=== PATIENT | female | born 1955 | race Asian ===

== ENCOUNTER 2016-08-24 07:59 | Emergency (ER) | payer OTHER ==
[2016-08-24 08:07] VITALS: TEMP 98; BMI 45.7
--- NOTE | 2016-08-24 08:40 | PDOC ---
History of Present Illness - General History Source: Patient Exam Limitations: No Limitations - History of Present Illness Initial Comments: 08/24/16 09:31 The patient is a 61 year old female with a past medical history of HTN, HLD, AFIB, GERD, and asthma who presents to the Emergency Department for further evaluation of high blood pressure, dizziness, and orthopnea for 2 days. The patient states that she measured her blood pressure at home and found it to be 173/111. The patient reports at baseline her blood pressure is normally 120/80. The patient reports that she has not been able to sleep secondary to shortness of breath when lying down. The patient reports that she stopped taking Hydralazine about one week ago. The patient reports that her last echocardiogram was in 2016. The patient denies nausea, vomiting, sweats, or chills. <Josr Hernández - Last Filed: 08/24/16 12:08> <Hunter Robert - Last Filed: 08/24/16 15:59> - General Chief Complaint: Shortness of Breath Stated Complaint: SOB/BP PROBLEM Time Seen by Provider: 08/24/16 08:26 Past History <Josr Hernández - Last Filed: 08/24/16 12:08> - Past Medical History Anemia: Yes Asthma: Yes Cardiac Disorders: Yes (afib on coumadin) GI Disorders: Yes (GERD) Disorders: Yes (UTI) HTN: Yes Hypercholesterolemia: Yes Suicide Attempt (Hx): No - Surgical History Appendectomy: Yes Orthopedic Surgery: Yes (R rotator cuff (04/19)) - Immunization History Immunization Up to Date: Yes - Psycho/Social/Smoking Cessation Hx Anxiety: No Suicidal Ideation: No Smoking Status: Yes Smoking History: Never smoked Have you smoked in the past 12 months: No Number of Cigarettes Smoked Daily: 0 If you are a former smoker, when did you quit?: 1989 Hx Alcohol Use: No Drug/Substance Use Hx: No Substance Use Type: None Hx Substance Use Treatment: No <Hunter Robert - Last Filed: 08/24/16 15:59> - Past Medical History Allergies/Adverse Reactions: Allergies Allergy/AdvReac Type Severity Reaction Status Date / Time aspirin Allergy Rash Verified 08/24/16 08:07 shellfish derived Allergy Verified 08/24/16 08:07 Home Medications: Ambulatory Orders Carvedilol [Coreg] 6.25 mg PO BID 01/30/12 Atorvastatin Ca [Lipitor] 10 mg PO DAILY #0 tablet 01/31/12 Apixaban [Eliquis -] 5 mg PO BID tablet 12/26/15 Furosemide [Lasix] 20 mg PO MOWEFR 08/24/16 Review of Systems - Review of Systems Able to Perform ROS?: Yes Comments:: 08/24/16 09:31 CONSTITUTIONAL: No reported: Fever, Chills, Diaphoresis, Generalized Weakness, Malaise, Loss of Appetite HEENT: No reported: Rhinorrhea, Nasal Congestion, Throat Pain, Throat Swelling, Difficulty Swallowing, Mouth Swelling, Ear Pain, Eye Pain, Visual Changes CARDIOVASCULAR: No reported: Chest Pain, Syncope, Palpitations, Irregular Heart Rate, Lightheadedness, Peripheral Edema RESPIRATORY: Reported: SOB, Orthopnea No reported: Cough, Wheezing, Stridor, Hemoptysis GASTROINTESTINAL: No reported: Abdominal pain, Abdominal Distension, Nausea, Vomiting, Diarrhea, Constipation, Melena, Hematochezia GENITOURINARY: No reported: Dysuria, Frequency, Urgency, Hesitancy, Flank Pain, Genital Pain MUSCULOSKELETAL: No reported: Myalgia, Arthralgia, Joint Swelling, Back pain, Neck Pain SKIN: No reported: Rash, Itching, Pallor HEMATOLOGIC/IMMUNOLOGIC: No reported: Easy Bleeding, Easy Bruising, Lymphadenopathy, Frequent infections ENDOCRINE: No reported: Unexplained Weight Gain, Unexplained Weight Loss, Heat Intolerance , Cold Intolerance NEUROLOGIC: Reported: Dizziness No reported: Headache, Focal Weakness, Paresthesias, Vertigo, Unsteady Gait, Seizure, Mental Status Changes, Incontinence PSYCHIATRIC: No reported: Anxiety, Depression <Josr Hernández - Last Filed: 08/24/16 12:08> *Physical Exam - Vital Signs Last Vital Signs Temp Pulse Resp BP Pulse Ox 98.0 F 87 28 H 173/111 97 08/24/16 08:01 08/24/16 08:19 08/24/16 08:01 08/24/16 08:01 08/24/16 08:19 - Physical Exam Comments: 08/24/16 09:38 GENERAL: The patient is awake, alert, and fully oriented, Nontoxic - in no acute distress. HEAD: Normocephalic, atraumatic. EYES: extraocular movements intact, sclera anicteric, conjunctiva clear. ENT: Normal voice, Moist mucous membranes. NECK: Normal range of motion, supple LUNGS: Breath sounds equal, clear to auscultation bilaterally. No wheezes, no rhonchi, no rales. HEART: irregularly irregular, normal S1 and S2 without murmur, rub or gallop. ABDOMEN: Soft, nontender, normoactive bowel sounds. No guarding, no rebound. . No CVA tenderness EXTREMITIES: +2 pitting edema bilaterally, Normal range of motion No clubbing or cyanosis. No cords, erythema, or tenderness. NEUROLOGICAL: No facial assymetry, Normal speech, moving all 4 extremities spontaneously and symmetrically PSYCH: Normal mood, normal affect. SKIN: Warm, Dry, normal turgor <Josr Hernández - Last Filed: 08/24/16 12:08> - Vital Signs Last Vital Signs Temp Pulse Resp BP Pulse Ox 98.0 F 87 28 H 173/111 97 08/24/16 08:01 08/24/16 08:19 08/24/16 08:01 08/24/16 08:01 08/24/16 08:19 <Hunter Robert - Last Filed: 08/24/16 15:59> Heart Score/ECG Review - ECG Impressions Comment:: 08/24/16 08:53 Twelve-lead EKG was performed and reviewed by me. Irregularly irregular Rate of 74 Q wave in lead 3 - present on EKG dated 04/30/[address]-T wave suggestive of acute ischemia Impression: Atrial fibrillation <Hunter Robert - Last Filed: 08/24/16 15:59> ED Treatment Course - LABORATORY CBC & Chemistry Diagram: 08/24/16 09:01 08/24/16 09:01 - ADDITIONAL ORDERS Additional order review: 08/24/16 09:01 RBC 4.24 MCV 94.3 MCHC 33.2 RDW 13.3 MPV 8.2 D Neutrophils % 70.6 Lymphocytes % 21.0 Monocytes % 5.2 Eosinophils % 2.4 Basophils % 0.8 - Medications Given in the ED: ED Medications Discontinued Medications Generic Name Dose Route Start Last Admin Trade Name Freq PRN Reason Stop Dose Admin Acetaminophen 650 mg 08/24/16 09:01 08/24/16 09:14 Tylenol - PO 08/24/16 09:02 Not Given ONCE ONE <Josr Hernández - Last Filed: 08/24/16 12:08> - LABORATORY CBC & Chemistry Diagram: 08/24/16 09:01 08/24/16 09:01 <Hunter Robert - Last Filed: 08/24/16 15:59> Medical Decision Making - Medical Decision Making 08/24/16 11:[address] Wang 08/24/16 11:[address] Wang 08/24/16 11:[address] Wang 08/24/16 12:00 Dr. Wang call into ER. Case discussed with Dr. Robert. <Josr Hernández - Last Filed: 08/24/16 12:08> - Medical Decision Making 08/24/16 12:01 61y F hx of afib on eliquis, htn, presents with orthopnea w/o associated chest pain/pressure, n/v, exertionalsob - on exam pt has mild edema in the LE, lungs clear. lbas reviewed noted for mild elevation of bnp cxr w/o signs of significant congestion but with mild interstitial changes vitals are normal case dw dr. Muñoz - pt last had echo in 01/2016. recommends lasix 40mg, repeat trop in 2-3 hrs if pt feels improved recommend increased lasix for a few days f/u with jelani with wed 08/24/16 12:02 08/24/16 12:04 08/24/16 12:18 08/24/16 12:18 pt endorses eating a meal of In[employer] ruperto the day prior to onset of sypmtoms - suspect thi smay have led to increasd fluid retention. 08/24/16 15:54 pt feeling improved able to recline with out feeling sob will d/c the pt with increased dosage of lasix an dfu with dr. muñoz on sat return precautions were discussed I discussed the physical exam findings, ancillary test results and final diagnoses with the patient. I answered all of the patient's questions. The patient was satisfied with the care received and felt comfortable with the discharge plan and treatment plan. The patient will call their primary care physician within 24 hours to arrange follow-up and will return to the Emergency Department with any new, persistent or worsening symptoms. <Hunter Robert - Last Filed: 08/24/16 15:59> *DC/Admit/Observation/Transfer - Attestations Scribe Attestion: 08/24/16 09:32 Documentation prepared by Josr Hernández, acting as medical administrator for Hunter Robert MD. <Josr Hernández - Last Filed: 08/24/16 12:08> - Discharge Dispostion Admit: No <Hunter Robert - Last Filed: 08/24/16 15:59> Diagnosis at time of Disposition: Congestive heart failure Qualifiers: Congestive heart failure type: unspecified congestive heart failure type Congestive heart failure chronicity: acute Qualified Code(s): I50.9 - Heart failure, unspecified - Discharge Dispostion Disposition: HOME Condition at time of disposition: Improved - Referrals Referrals: Argelia Morrissey [Primary Care Provider] - Josue Muñoz MD [Staff Physician] - - Patient Instructions Printed Discharge Instructions: DI for Heart Failure Additional Instructions: Return to the emergency department immediately with ANY new, persistent or worsening symptoms including any chest pain, shortness of breath or any other concerns. Please increase your lasix to 20mg twice daily for 3 days, then return to your old dosage. You MUST call and follow up with your flexo press operator on Saturday for further evaluation of your symptoms. Results were discussed with you. Please make sure your doctor reviews the results of your emergency evaluation. Print Language: BELARUSIAN
[2016-08-24] MEDS ORDERED: ACETAMINOPHEN 325 MG TABLET (FP) PO ONE (09:01)
[2016-08-24] MEDS ORDERED: ACETAMINOPHEN 325 MG TABLET (FP) ONE (09:12)
[2016-08-24 09:16] LABS: BASOPHIL 0.8 % (0-2.0); EOSINOPHIL 2.4 % (0-4.5); MCH 31.3 pg (25.7-33.7); MCHC 33.2 g/dl (32.0-36.0); MEAN CELL VOLUME 94.3 fl (80-96); MEAN PLT VOLUME 8.2 fl (7.5-11.1); NEUTROPHILS 70.6 % (42.8-82.8); PLATELET COUNT 173 K/MM3 (134-434); RDW 13.3 % (11.6-15.6); WHITE BLOOD COUNT 5.4 K/mm3 (4.0-10.0)
[2016-08-24 09:58] LABS: ALBUMIN 3.3 g/dl (3.4-5.0); ANION GAP 6 (8-16); BILIRUBIN,TOTAL 0.6 mg/dL (0.2-1.0); CALCIUM 9.1 mg/dL (8.5-10.1); CO2 27 mmol/L (21-32); GLUCOSE,RANDOM 106 mg/dL (74-106); SGOT/AST 20 U/L (15-37); SGPT/ALT 26 U/L (12-78); TOT PROT 7.6 g/dl (6.4-8.2)
[2016-08-24 10:00] LABS: ALK PHOS 92 U/L (45-117); TROPONIN I < 0.02 ng/ml (0.00-0.05)
[2016-08-24] MEDS ORDERED: FUROSEMIDE 40 MG/4 ML INJECTABLE VIAL IVPUSH ONE (12:00)
[2016-08-24] MEDS ORDERED: FUROSEMIDE 40 MG/4 ML INJECTABLE VIAL ONE (12:09)
[2016-08-24 14:47] LABS: TROPONIN I < 0.02 ng/ml (0.00-0.05)
[2016-08-24 17:09] VITALS: BP 146/88; PULSE 64
--- NOTE | 2016-08-25 10:05 | EKG ---
Test Reason : Blood Pressure : / mmHG Vent. Rate : 074 BPM Atrial Rate : 340 BPM P-R Int : 000 ms QRS Dur : 092 ms QT Int : 404 ms P-R-T Axes : 000 032 041 degrees QTc Int : 448 ms ATRIAL FIBRILLATION CANNOT RULE OUT INFERIOR INFARCT (CITED ON OR BEFORE 30-APR-2016) ABNORMAL ECG WHEN COMPARED WITH ECG OF 30-APR-2016 21:51, NO SIGNIFICANT CHANGE WAS FOUND Confirmed by JACQUELIN PEOPLES MD ([id number]) on 08/25/2016 10:05:34 AM Referred By: Confirmed By:JACQUELIN PEOPLES MD
== END 2016-08-24 17:09 | disposition home or self-care (01) ==
LOC: JER 07:59
PROC: 3E033GC Introduction of Other Therapeutic Substance into Peripheral Vein, Percutaneous Approach (ICD-10-PCS; principal; 2016-08-24)
DX: I50.9 Heart failure, unspecified (principal); I48.91 Unspecified atrial fibrillation; Z79.01 Long term (current) use of anticoagulants; I10 Essential (primary) hypertension; E78.00 Pure hypercholesterolemia, unspecified; K21.9 Gastro-esophageal reflux disease without esophagitis
CPT/HCPCS: 36415; 71010-TC; 80053; 82550; 83735; 83880; 84484; 85025; 93005; 93010; 93306-TC; 96374; 99285-25

== ENCOUNTER 2016-09-08 14:31 | Observation (INO) | payer OTHER ==
[2016-09-08 14:40] VITALS: BMI 48.2
--- NOTE | 2016-09-08 17:30 | PDOC ---
History of Present Illness - General History Source: Patient Exam Limitations: No Limitations - History of Present Illness Initial Comments: 09/08/16 18:03 The patient is a 61 year old female with a significant past medical history of HTN, AFIB (on eliquis), acid reflux, GERD, who presents to the ED complaining of non-radiating mid-chest achiness for the past two days. She notes some associated SOB and nausea. She describes the chest achiness as 4/10 in severity. She states she felt like fainting on multiple occasions and had difficulty sleeping. Her took her blood pressure this morning at 10 AM, and reported it being high at 167/105. She denies cough, fever, chills, diarrhea vomiting diaphoresis. Pt states she was here two weeks ago for similar symptoms. She was given a chest x-ray, which was unremarkable. Pt states she is scheduled for a stress test here next . Blow Molding Machine Operator: Dr. Muñoz PCP: Dr. Morrissey <Leopoldo Garay - Last Filed: 09/08/16 18:03> - General History Source: Patient Exam Limitations: No Limitations <Candi Gustafson - Last Filed: 09/08/16 19:52> - General Chief Complaint: Weakness Stated Complaint: WEAKNESS Time Seen by Provider: 09/08/16 16:48 Past History <Leopoldo Garay - Last Filed: 09/08/16 18:03> - Past Medical History Asthma: Yes Cardiac Disorders: Yes (A FIB) HTN: Yes - Surgical History Appendectomy: Yes - Psycho/Social/Smoking Cessation Hx Anxiety: No Suicidal Ideation: No Smoking History: Never smoked Hx Alcohol Use: No Drug/Substance Use Hx: No Substance Use Type: None <Candi Gustafson - Last Filed: 09/08/16 19:52> - Past Medical History Allergies/Adverse Reactions: Allergies Allergy/AdvReac Type Severity Reaction Status Date / Time aspirin Allergy Itching Verified 09/08/16 14:41 SEAFOOD Allergy Itching Uncoded 09/08/16 14:41 Home Medications: Ambulatory Orders Unobtainable [Unobtainable] 09/08/16 Review of Systems - Review of Systems Able to Perform ROS?: Yes Comments:: 09/08/16 18:04 GENERAL/CONSTITUTIONAL: No: fever, chills, weakness, loss of appetite. HEAD, EYES, EARS, NOSE AND THROAT: No: change in vision, ear pain, discharge, sore throat, throat swelling. CARDIOVASCULAR: + chest pain. No: lightheadedness, palpitations, syncope RESPIRATORY: + SOB. No: cough, wheezing, hemoptysis, stridor. GASTROINTESTINAL: + nausea No: vomiting, abdominal cramping, diarrhea, rectal bleeding, constipation. GENITOURINARY: No: dysuria, hematuria, frequency, urgency, flank pain. MUSCULOSKELET AL: No: back pain, neck pain, joint pain, muscle swelling or pain SKIN AND BREASTS: No: lesions, pallor, rash or easy bruising. NEUROLOGIC: No: headache, vertigo, paresthesias, weakness ENDOCRINE: No: unexplained weight gain or loss HEMATOLOGIC/LYMPHATIC: No: anemia, easy bleeding, swelling nodes <Leopoldo Garay - Last Filed: 09/08/16 18:03> *Physical Exam - Vital Signs Last Vital Signs Temp Pulse Resp BP Pulse Ox 98.2 F 72 20 153/78 97 09/08/16 14:36 09/08/16 14:36 09/08/16 14:36 09/08/16 14:36 09/08/16 14:36 - Physical Exam Comments: 09/08/16 18:04 GENERAL: The patient is in no acute distress. HEAD: Normal with no signs of trauma. EYES: PERRLA, EOMI, sclera anicteric, conjunctiva clear. ENT: Ears normal, nares patent, oropharynx clear without exudates. Moist mucous membranes. NECK: Normal range of motion, supple without lymphadenopathy, JVD, or masses. LUNGS: Basilar crackles. Breath sounds equal, clear to auscultation bilaterally. No wheezes. HEART: Ireggulary ireggular, normal S1 and S2 without murmur, rub or gallop. ABDOMEN: Soft, nontender, normoactive bowel sounds. No guarding, no rebound. EXTREMITIES: 3+ lower pitting edema. Normal range of motion. No clubbing or cyanosis. No erythema, or tenderness. NEUROLOGICAL: Cranial nerves II through XII grossly intact. Normal speech. No focal neurological deficits. MUSCULOSKELETAL: Back non-tender to palpation, no CVA tenderness SKIN: Warm, Dry, normal turgor, no rashes or lesions noted. <Leopoldo Garay - Last Filed: 09/08/16 18:03> - Vital Signs Last Vital Signs Temp Pulse Resp BP Pulse Ox 98.2 F 72 20 153/78 97 09/08/16 14:36 09/08/16 14:36 09/08/16 14:36 09/08/16 14:36 09/08/16 14:36 <Candi Gustafson - Last Filed: 09/08/16 19:52> Heart Score/ECG Review - History History: Moderately suspicious - Electrocardiogram EKG: Non specific repolarization disturbance - Age Age: 45-65 - Risk Factors Risk Factors Heart Score: Yes Hx Hypercholesterolemia, Yes Hx Hypertension Based on the list above the patient has:: 1-2 risk factors <Candi Gustafson - Last Filed: 09/08/16 19:52> ED Treatment Course - LABORATORY CBC & Chemistry Diagram: 09/08/16 17:30 09/08/16 17:30 - ADDITIONAL ORDERS Additional order review: 09/08/16 17:30 RBC 4.32 MCV 93.7 MCHC 33.4 RDW 13.2 MPV 8.5 Neutrophils % 62.0 Lymphocytes % 25.9 Monocytes % 8.8 Eosinophils % 2.5 Basophils % 0.8 <Leopoldo Garay - Last Filed: 09/08/16 18:03> - LABORATORY CBC & Chemistry Diagram: 09/08/16 17:30 09/08/16 17:30 <Candi Gustafson - Last Filed: 09/08/16 19:52> Medical Decision Making - Medical Decision Making 09/08/16 17:29 A portion of this note was documented by scribe services under my direction. I have reviewed the details of the note, within reason, and agree with the documentation with the following case summary and management plan written by me. Nursing documentation reviewed and incorporated into medical decision making 61 yo F h/o obesity, HTN, CHF presenting to the er with shortness of breath and fatigue pt has felt chest pain which she describes as an ache Has exertional dyspnea No fevers or chills Differential includes cardiac ischemia, pe (less likely given pt is on Eliquis) , pneumonia, pneumothorax, pleural effusion, CHF Laboratory Tests 09/08/16 09/08/16 09/08/16 17:30 17:30 18:00 WBC 6.0 Hgb 13.5 Hct 40.5 Plt Count 195 Neutrophils % 62.0 Lymphocytes % 25.9 Anion Gap 10 BUN 20 H Creatinine 1.0 Creatine Kinase 81 Troponin I < 0.02 B-Natriuretic Peptide 2947.34 H 09/08/16 19:[address] Mancini Will admit to Hospitalist service Will place on tele 09/08/16 19:35 <Candi Gustafson - Last Filed: 09/08/16 19:52> *DC/Admit/Observation/Transfer - Attestations Scribe Attestion: 09/08/16 18:06 Documentation prepared by Leopoldo Garay, acting as medical facilities section director for Candi Gustafson MD/. <Leopoldo Garay - Last Filed: 09/08/16 18:03> - Discharge Dispostion Admit: Yes <Candi Gustafson - Last Filed: 09/08/16 19:52> Diagnosis at time of Disposition: Chest pain Qualifiers: Chest pain type: unspecified Qualified Code(s): R07.9 - Chest pain, unspecified Congestive heart failure Qualifiers: Congestive heart failure type: unspecified congestive heart failure type Congestive heart failure chronicity: acute on chronic Qualified Code(s): I50.9 - Heart failure, unspecified - Discharge Dispostion Condition at time of disposition: Stable - Referrals Referrals: Argelia Morrissey [Primary Care Provider] -
[2016-09-08 17:41] LABS: BASOPHIL 0.8 % (0-2.0); EOSINOPHIL 2.5 % (0-4.5); MCH 31.3 pg (25.7-33.7); MCHC 33.4 g/dl (32.0-36.0); MEAN CELL VOLUME 93.7 fl (80-96); MEAN PLT VOLUME 8.5 fl (7.5-11.1); PLATELET COUNT 195 K/MM3 (134-434); RDW 13.2 % (11.6-15.6)
[2016-09-08 17:55] LABS: INR 1.05 (0.82-1.09); PROTHROMBIN TIME (PATIENT) 11.6 SEC (9.98-11.88)
[2016-09-08 18:20] LABS: ALBUMIN 3.1 g/dl (3.4-5.0); ANION GAP 10 (8-16); BILIRUBIN,TOTAL 0.8 mg/dL (0.2-1.0); CALCIUM 9.5 mg/dL (8.5-10.1); CO2 28 mmol/L (21-32); COCKROFT - GAULT 105.1365; GLUCOSE,RANDOM 90 mg/dL (74-106); SGPT/ALT 29 U/L (12-78); TOT PROT 7.5 g/dl (6.4-8.2)
[2016-09-08 18:23] LABS: ALK PHOS 97 U/L (45-117); SGOT/AST 25 U/L (15-37); TROPONIN I < 0.02 ng/ml (0.00-0.05)
[2016-09-08 18:56] LABS: URINE APPEARANCE CLEAR; URINE BILIRUBIN NEGATIVE (NEGATIVE); URINE BLOOD NEGATIVE (NEGATIVE); URINE COLOR STRAW; URINE GLUCOSE (UA) NEGATIVE (NEGATIVE); URINE KETONE NEGATIVE (NEGATIVE); URINE NITRITE NEGATIVE (NEGATIVE); URINE PROTEIN NEGATIVE (NEGATIVE); URINE UROBILINOGEN NEGATIVE E.U./dl (0.2-1.0)
[2016-09-08 18:57] LABS: URINE LEUK ESTERASE TRACE (NEGATIVE)
[2016-09-08 18:58] LABS: URINE HYALINE CAST 3 /lpf; URINE RBC 1 /hpf (0-3); URINE WBC 7 /hpf (3-5)
[2016-09-08] MEDS ORDERED: FUROSEMIDE 40 MG/4 ML INJECTABLE VIAL IVPB ONE (20:34)
[2016-09-08] MEDS ORDERED: ONDANSETRON 4 MG/2 ML VIAL IVPB PRN (20:37)
[2016-09-08] MEDS ORDERED: ACETAMINOPHEN 325 MG TABLET (FP) PO PRN (20:37)
--- NOTE | 2016-09-08 20:51 | HP ---
Admitting History and Physical - Admission Chief Complaint: sob, cp History of Present Illness: 61 yo obese f w hx of afib on eliquis, htn, osas, asthma, GERD, oa presents to the ER for evaluation of sob, and cp. she reports seeing coke oven mason ( Wanda) last week and had increase in Lasix to 20mg BID. She reports taking Lasix sometimes once a day because of concern of her kidneys. She was also scheduled for a stress test for next . She reports having echo done 2016, and a stress test in 2014 which was normal. She reports that she was in ER at [facility] 2 weeks ago and was given IV Lasix for SOB symptoms. She reports yesterday she felt an achy mid sternum pain which lasted 1/2 of the day. She reports it was 3-4/10. She denies associated numbness, jaw claudication, heart palps, nausea, vomiting. She also reports getting sob suddenly at night which has disturbed her sleep. She denies RAMSAY. She reports having Sob for several months and had a sleep study test done showing mild sleep apnea 6mon ago. She also reports feeling a few presyncopal episodes lasting a few seconds. She reports that when she checked her B/P it was 167/105. PMH/PSH: Obesity, htn, afib, osas, gerd, asthma, oa, appy, hemorrhoids sx, uterine polyps removal, R rotator cuff sx Social- Denies tobacco, alcohol, rec drugs. Works as [employer]. Family History: No family history of kidney disease; sister with DM, mother and father with HTN and CVA (both ) PCP- Argelia Morrissey- Wanda Rest of ros neg except for HPI Physical Gen- obese, in nad Hent- at/nc, timothy, neck supple, trachea mid-line, no pharyngeal erythema Resp- NO cough, no cyanosis, lungs ctab, no rales, no ronchi Cards- S1S2 heard, irreg rhythm, reg rate, no JVD, +1 pitting edema, extremity pulses palpable Neuro- cn2-12 grossly intact, speech clear, no facial droop Musk- Muscle strength 5/5 BUE/BLE, normal arom BUE/BLE Psych- cooperative, no agitation Skin- intact, dry, no erythema Gi- obese, no rigidity, no rebound, no guarding, no distention Prob list SOB CP Afib HTN asthma osas Presyncope GERD Imaging: CXR appears clear by my eye EKG- afib, non specific ST and T wave abnormality, q in III, Echo 08/2016- LV function grossly normal, no sig valve disease A/P- 61 yo obese f w hx of afib on eliquis, htn, osas, asthma, oa presents to the ER for evaluation of sob, and cp placed in obs for further evaluation of their emergent condition. 1. SOB, ?CHF, ?ACS ?infection ?asthma CXR appears clear by my eye 1st trop negative BNP 2947, but higher on prior visit on 08/2016 BLE +1 Lasix 40mg IV Daily weights Supp O2, PRN nebs Low salt Cards consult Cardiac monitoring 2. Atypical CP, ?ACS ?MUSK ECG shows afib non specific t wave abnormality Cycle Trops Cards consult Possible stress test 3. Afib Continue AC, BB 4. HTN Continue Losartan, Coreg 5. OSAS Not on Bipap 6. Presyncope FU Trops Cardiac tele 7. BLE edema likely related to CHF v other FU duplex BLE 8. GERD DVT prophy systemic AC, OOB Dispo- obs for ACS r/o History Source: Patient, Family Member Limitations to Obtaining History: No Limitations - Smoking History Smoking history: Never smoked - Alcohol/Substance Use Hx Alcohol Use: No Home Medications - Allergies Allergies/Adverse Reactions: Allergies Allergy/AdvReac Type Severity Reaction Status Date / Time aspirin Allergy Itching Verified 09/08/16 14:41 SEAFOOD Allergy Itching Uncoded 09/08/16 14:41 - Home Medications Home Medications: Ambulatory Orders Apixaban [Eliquis -] 5 mg PO BID 09/08/16 Atorvastatin Ca [Lipitor] 10 mg PO HS 09/08/16 Carvedilol [Coreg -] 6.25 mg PO BID 09/08/16 Furosemide [Lasix -] 20 mg PO BID 09/08/16 Losartan Potassium 100 mg PO DAILY 09/08/16 Physical Examination Vital Signs: Vital Signs Temperature 98.2 F 09/08/16 14:36 Pulse Rate 73 09/08/16 20:14 Respiratory Rate 19 09/08/16 20:14 Blood Pressure 135/91 09/08/16 20:14 O2 Sat by Pulse Oximetry (%) 99 09/08/16 20:14 Labs: CBC, BMP 09/08/16 17:30 09/08/16 17:30 Visit type - Emergency Visit Emergency Visit: Yes ED Registration Date: 09/08/16 Care time: The patient presented to the Emergency Department on the above date and was hospitalized for further evaluation of their emergent condition. - New Patient This patient is new to me today: Yes Date on this admission: 09/09/16 - Critical Care Critical Care patient: No
[2016-09-08] MEDS ORDERED: ALBUTEROL SO4 2.5/IPRATROPIUM 0.5 INH SOL 3 ML VIAL.NEB. NEB PRN (21:05)
[2016-09-09 07:11] LABS: ALBUMIN 3.5 g/dl (3.4-5.0); BILIRUBIN,TOTAL 0.7 mg/dL (0.2-1.0); CALCIUM 9.3 mg/dL (8.5-10.1); COCKROFT - GAULT 87.618; CREATININE 1.2 mg/dL (0.55-1.02); TOT PROT 7.9 g/dl (6.4-8.2)
[2016-09-09 07:14] LABS: TROPONIN I < 0.02 ng/ml (0.00-0.05)
[2016-09-09 07:19] LABS: BASOPHIL 0.6 % (0-2.0); EOSINOPHIL 2.5 % (0-4.5); MCH 31.6 pg (25.7-33.7); MCHC 33.5 g/dl (32.0-36.0); MEAN CELL VOLUME 94.4 fl (80-96); MEAN PLT VOLUME 8.7 fl (7.5-11.1); NEUTROPHILS 63.1 % (42.8-82.8); PLATELET COUNT 203 K/MM3 (134-434); RDW 13.3 % (11.6-15.6); WHITE BLOOD COUNT 5.9 K/mm3 (4.0-10.0)
[2016-09-09] MEDS ORDERED: POTASSIUM CHLORIDE ORAL LIQUID 20 MEQ/15 ML PO ONE (09:15)
[2016-09-09] MEDS ORDERED: CARVEDILOL 3.125 MG TABLET (FP) ONE (10:05)
[2016-09-09] MEDS ORDERED: LOSARTAN POTASSIUM 25 MG TABLET ONE (10:06)
[2016-09-09] MEDS ORDERED: POTASSIUM CHLORIDE ORAL LIQUID 20 MEQ/15 ML ONE (10:06)
[2016-09-09] MEDS ORDERED: ACETAMINOPHEN 325 MG TABLET (FP) ONE (10:56)
[2016-09-09] MEDS: CARVEDILOL 6.25 MG TABLET (FP) PO SCH ×2 (11:00→21:06)
[2016-09-09] MEDS: LOSARTAN POTASSIUM 50 MG TABLET (FP) PO SCH (11:00)
[2016-09-09] MEDS: APIXABAN 5 MG TABLET PO SCH ×2 (11:00→21:06)
--- NOTE | 2016-09-09 11:23 | PN ---
Physical Exam: SUBJECTIVE: Patient seen and examined in ER while waiting for a telemetry bed for observation. Pt is AAOx3 She denies SOB and CP OBJECTIVE: Vital Signs Period Temp Pulse Resp BP Sys/Weiss Pulse Ox Last 24 Hr 98.0 F-98.5 F 67-73 18-20 127-145/63-91 96-99 GENERAL: The patient is awake, alert, and fully oriented, in no acute distress. HEAD: Normal with no signs of trauma. NECK: Trachea midline, full range of motion, supple. LUNGS: Breath sounds equal, clear to auscultation bilaterally, no wheezes, no crackles, no accessory muscle use. HEART: irregular rate (chronic AF) and rhythm, S1, S2 without murmur ABDOMEN: Soft, nontender, nondistended, normoactive bowel sounds, no guarding, no rebound, no hepatosplenomegaly, no masses. EXTREMITIES: 2+ pulses, warm, well-perfused, +1 LE trace edema. NEUROLOGICAL: Normal speech, gait not observed. PSYCH: Normal mood, normal affect. SKIN: Warm, dry, normal turgor, no rashes or lesions noted Laboratory Results - last 24 hr 09/09/16 09/09/16 09/09/16 06:30 06:30 06:30 WBC 5.9 RBC 4.54 Hgb 14.4 Hct 42.9 MCV 94.4 MCHC 33.5 RDW 13.3 Plt Count 203 MPV 8.7 Neutrophils % 63.1 Lymphocytes % 27.3 Monocytes % 6.5 Eosinophils % 2.5 Basophils % 0.6 Sodium 141 Potassium 3.3 L Chloride 103 Carbon Dioxide 29 Anion Gap 9 BUN 22 H Creatinine 1.2 H Creat Clearance w eGFR 45.37 Random Glucose 111 H D Calcium 9.3 Total Bilirubin 0.7 AST 23 ALT 30 Alkaline Phosphatase 96 Creatine Kinase 55 Troponin I < 0.02 Total Protein 7.9 Albumin 3.5 Active Medications Generic Name Dose Route Start Last Admin Trade Name Freq PRN Reason Stop Dose Admin Acetaminophen 650 mg 09/08/16 20:37 Tylenol - PO Q4H PRN FEVER OR PAIN Albuterol/Ipratropium 1 amp 09/08/16 21:05 Duoneb - NEB Q6H PRN SHORTNESS OF BREATH Apixaban 5 mg 09/09/16 10:00 Eliquis - PO BID MEAGAN Atorvastatin Calcium 10 mg 09/09/16 22:00 Lipitor - PO HS MEAGAN Carvedilol 6.25 mg 09/09/16 10:00 Coreg - PO BID MEAGAN Losartan Potassium 100 mg 09/09/16 10:00 Cozaar - PO DAILY MEAGAN Ondansetron HCl 4 mg 09/08/16 20:37 Zofran Injection IVPB Q4H PRN NAUSEA AND/OR VOMITING ASSESSMENT/PLAN: A/P- 61 yo obese f w hx of afib on eliquis, htn, osas, asthma, oa presents to the ER for evaluation of sob, and cp placed in obs/tele for further evaluation of their emergent condition. 1. SOB but currently without distress -CXR considered officially clear -1 and 2 sets of trop negative, next scheduled at 14:30 today -BLE trace edema, no pitting -Cards consult placed last shift -Cardiac monitoring remains in AF 2. Atypical CP but currently without pain -Cycle Trops pending 3rd set at 14:30 -Cards consult - will ask Dr. Timmons re: Possible stress test 3. Afib -Continue AC, BB 4. HTN -Continue Losartan, Coreg 6. BLE edema -decreased while here and having elevated them -duplex negative for any DVT 7. GI/DVT ppx continued Problem List - Problems (1) CHF (congestive heart failure) Code(s): I50.9 - HEART FAILURE, UNSPECIFIED Qualifiers: Congestive heart failure type: unspecified congestive heart failure type Congestive heart failure chronicity: acute on chronic Qualified Code(s): I50.9 - Heart failure, unspecified (2) Chest pain Code(s): R07.9 - CHEST PAIN, UNSPECIFIED Qualifiers: Chest pain type: unspecified Qualified Code(s): R07.9 - Chest pain, unspecified Visit type - Emergency Visit Emergency Visit: No - New Patient This patient is new to me today: Yes Date on this admission: 09/09/16 - Critical Care Critical Care patient: No
--- NOTE | 2016-09-09 14:19 | CON.CARD ---
Consult Consult Specialty:: cardiology Reason for Consultation:: chest pain; SOB - History of Present Illness Chief Complaint: Pt is anxious; has a host of complaints; the principal one is of a sudden "click" in her head that lasts a second; it has occurred a few times over the past 24 hours. Her insists on speaking for her, and tends to finish her sentences when she does speak. History of Present Illness: The patient is a 61 year old female with a significant past medical history of HTN, AFIB (on carvedilol and eliquis), morbid obesity, acid reflux, GERD, who presents to the ED complaining of non-radiating mid-chest achiness and discomfort in her head (sudden "click" that feels like her head moves; lasts only a second) for the past two days. She notes some associated SOB and nausea. She describes the chest achiness as 4/10 in severity. She states she felt like fainting on multiple occasions and had difficulty sleeping. Her took her blood pressure this morning at 10 AM, and reported it being high at 167/105. She denies cough, fever, chills, diarrhea vomiting diaphoresis. Denies fainting. Pt states she was here two weeks ago for similar symptoms. She was given a chest x-ray, which was unremarkable. Pt states she is scheduled for a stress test here next . Lime Plant Operator: Dr. Muñoz PCP: Dr. Morrissey - History Source History Provided By: Patient, Medical Record Limitations to Obtaining History: Poor Historian - Past Medical History Cardio/Vascular: Yes: HTN, Hyperlipdemia, Other (morbid obesity; sedentary) Gastrointestinal: Yes: GERD Reproductive: Yes: Postmenopausal ...: No Heme/Onc: No: Anemia Psych: Yes: Anxiety - Alcohol/Substance Use Hx Alcohol Use: No - Smoking History Smoking history: Never smoked Home Medications - Allergies Allergies/Adverse Reactions: Allergies Allergy/AdvReac Type Severity Reaction Status Date / Time aspirin Allergy Itching Verified 09/08/16 14:41 SEAFOOD Allergy Itching Uncoded 09/08/16 14:41 - Home Medications Home Medications: Ambulatory Orders Apixaban [Eliquis -] 5 mg PO BID 09/08/16 Atorvastatin Ca [Lipitor] 10 mg PO HS 09/08/16 Carvedilol [Coreg -] 6.25 mg PO BID 09/08/16 Furosemide [Lasix -] 20 mg PO BID 09/08/16 Losartan Potassium 100 mg PO DAILY 09/08/16 Family Disease History - Family Disease History Family History: Denies Review of Systems - Review of Systems Constitutional: reports: Weakness, Other (discomfort in her head) Eyes: reports: No Symptoms HENT: reports: Other (see under "chief complaint') Neck: reports: Pain on Movement Cardiovascular: reports: Chest Pain Respiratory: reports: SOB on Exertion Gastrointestinal: reports: No Symptoms Genitourinary: reports: No Symptoms Breasts: reports: No Symptoms Reported Musculoskeletal: reports: Muscle Pain Neurological: reports: Headache Psychiatric: reports: Anxiety - Risk Factors Known Risk Factors: Yes: Age, Diabetes Mellitus, Hypercholesterolemia, Hypertension, Physical Inactivity, Other (morbid obesity) Vital Signs: Vital Signs Temperature 98.0 F 09/09/16 10:09 Pulse Rate 67 09/09/16 10:09 Respiratory Rate 18 09/09/16 10:09 Blood Pressure 145/65 09/09/16 10:09 O2 Sat by Pulse Oximetry (%) 96 09/09/16 10:09 Constitutional: Yes: Anxious, Obese Eyes: Yes: WNL HENT: Yes: WNL Neck: Yes: WNL Respiratory: Yes: WNL Gastrointestinal: Yes: Soft, Abdomen, Obese Renal/: Yes: Anuria Cardiovascular: Yes: Regular Rate and Rhythm JVD: No Carotid Bruit: No PMI: Non-Displaced Heart Sounds: Yes: S1, S2, S4 Musculoskeletal: Yes: Muscle Weakness Extremities: Yes: WNL Edema: No Peripheral Pulses WNL: Yes - Other Data Labs, Other Data: CBC, BMP 09/09/16 06:30 09/09/16 06:30 INR, PTT INR 1.05 (0.82-1.09) 09/08/16 17:30 Troponin, BNP 09/09/16 06:30 Troponin I < 0.02 Troponin, BNP 09/09/16 06:30 Troponin I < 0.02 Imaging - Results Chest X-ray: Image Reviewed Problem List - Problems (1) Atypical chest pain Assessment/Plan: pt c/o strange sensation in head, with accompanying neck pain and discomfort in extreme upper part of chest at rest. TNI < 0.02; f/u serially. F/u EKG, telemetry. Pt is scheduled for stress MIBI later this week; consider doing this tomorrow. Code(s): R07.89 - OTHER CHEST PAIN (2) Diabetes Code(s): E11.9 - TYPE 2 DIABETES MELLITUS WITHOUT COMPLICATIONS (3) HTN (hypertension) Assessment/Plan: on Coreg and losartan. Diet consultation. Code(s): I10 - ESSENTIAL (PRIMARY) HYPERTENSION (4) Morbid obesity Assessment/Plan: diet evaluation. Code(s): E66.01 - MORBID (SEVERE) OBESITY DUE TO EXCESS CALORIES (5) Anxious appearance Assessment/Plan: Pt is quite anxious; repeats her feelings of discomfort in her head. Her , at bedside, insists on explaining 's problems, interrupting and "correcting" her when she attempts to describe her own condition. Code(s): R45.89 - OTHER SYMPTOMS AND SIGNS INVOLVING EMOTIONAL STATE (6) Hyperlipidemia Assessment/Plan: f/u lipids; keep LDL cholesterol < 70 mg/dL. Code(s): E78.5 - HYPERLIPIDEMIA, UNSPECIFIED
[2016-09-09] MEDS ORDERED: POTASSIUM CHLORIDE TABS 20 MEQ TABLET.ER (FP) PO ONE ×2 (15:00→16:15)
[2016-09-09 15:27] LABS: CHOLESTEROL 201 mg/dL (50-200); MAGNESIUM 1.8 mg/dL (1.8-2.4)
[2016-09-09 15:29] LABS: TROPONIN I < 0.02 ng/ml (0.00-0.05)
[2016-09-09 15:43] LABS: LDL CHOLESTEROL (ONLY SJRH) 131 mg/dL (5-100)
[2016-09-09 15:50] LABS: THYROID STIMULATING HORMONE 3.06 uIU/ml (0.358-3.74)
[2016-09-09] MEDS ORDERED: ATORVASTATIN CA 10 MG TABLET (FP) PO SCH (22:00)
[2016-09-10 08:54] LABS: ALBUMIN 3.2 g/dl (3.4-5.0); CALCIUM 9.5 mg/dL (8.5-10.1); MAGNESIUM 2.2 mg/dL (1.8-2.4)
[2016-09-10 08:58] LABS: BILIRUBIN,TOTAL 0.7 mg/dL (0.2-1.0); COCKROFT - GAULT 80.8775; CREATININE 1.3 mg/dL (0.55-1.02); PHOSPHOROUS 3.5 mg/dL (2.5-4.9); TOT PROT 7.2 g/dl (6.4-8.2)
--- NOTE | 2016-09-10 09:04 | EKG ---
Test Reason : Blood Pressure : / mmHG Vent. Rate : 073 BPM Atrial Rate : 214 BPM P-R Int : 000 ms QRS Dur : 098 ms QT Int : 416 ms P-R-T Axes : 000 047 073 degrees QTc Int : 458 ms ATRIAL FIBRILLATION NONSPECIFIC ST AND T WAVE ABNORMALITY ABNORMAL ECG NO PREVIOUS ECGS AVAILABLE Confirmed by JAMEL ERICKSON, JOHANNA ([id number]) on 09/10/2016 9:03:54 AM Referred By: Confirmed By:JOHANNA MCCULLOUGH MD
[2016-09-10] MEDS ORDERED: DIPYRIDAMOLE 50 MG/10 ML VIAL IVPB ONE (09:49)
--- NOTE | 2016-09-10 10:47 | PN ---
Progress Note, Physician History of Present Illness: seen and examined today in [facility]. no overnight events. no new complaints. - Current Medication List Current Medications: Active Medications Acetaminophen (Tylenol -) 650 mg PO Q4H PRN PRN Reason: FEVER OR PAIN Last Admin: 09/09/16 11:00 Dose: 650 mg Albuterol/Ipratropium (Duoneb -) 1 amp NEB Q6H PRN PRN Reason: SHORTNESS OF BREATH Apixaban (Eliquis -) 5 mg PO BID [facility] Last Admin: 09/09/16 21:06 Dose: 5 mg Atorvastatin Calcium (Lipitor -) 10 mg PO HS [facility] Last Admin: 09/09/16 21:06 Dose: 10 mg Carvedilol (Coreg -) 6.25 mg PO BID [facility] Last Admin: 09/09/16 21:06 Dose: Not Given Dipyridamole 50 mg/ Dextrose 50 mls @ 750 mls/hr IVPB ONCE ONE Stop: 09/10/16 11:03 Losartan Potassium (Cozaar -) 100 mg PO DAILY [facility] Last Admin: 09/09/16 11:00 Dose: 100 mg Ondansetron HCl (Zofran Injection) 4 mg IVPB Q4H PRN PRN Reason: NAUSEA AND/OR VOMITING - Objective Vital Signs: Vital Signs Temperature 98.2 F 09/10/16 08:00 Pulse Rate 74 09/10/16 08:00 Respiratory Rate 14 09/10/16 08:00 Blood Pressure 139/99 09/10/16 09:33 O2 Sat by Pulse Oximetry (%) 99 09/09/16 18:15 Constitutional: Yes: No Distress, Calm, Obese Eyes: Yes: WNL, Conjunctiva Clear, EOM Intact, PERRL HENT: Yes: WNL, Atraumatic, Normocephalic Neck: Yes: WNL, Supple, Trachea Midline Cardiovascular: Yes: Pulse Irregular, S1, S2. No: Bradycardia, Tachycardia, Bruit, JVD, Gallop, Murmur, Rub, S3, S4, Varicosities Respiratory: Yes: Regular, CTA Bilaterally. No: Rales, Rhonchi, Wheezes Gastrointestinal: Yes: Normal Bowel Sounds, Soft. No: Distention, Tenderness Musculoskeletal: Yes: WNL Extremities: Yes: WNL Edema: No Peripheral Pulses WNL: Yes Peripheral Pulses: Left Doralis Pedis: 2+, Right Dorsalis Pedis: 2+ Integumentary: Yes: WNL Neurological: Yes: Alert, Oriented, Cran Nerves II-XII Intact Psychiatric: Yes: Alert, Oriented Labs: CBC, BMP 09/09/16 06:30 09/10/16 05:35 INR, PTT INR 1.05 (0.82-1.09) 09/08/16 17:30 - ....Imaging Chest X-ray: Report Reviewed, Image Reviewed EKG: Report Reviewed, Image Reviewed Other: Report Reviewed, Image Reviewed (tele-AFib, HR adequately controlled,) Assessment/Plan 61 year old woman with a history of HTN, chronic AFib, chronic diastolic CHF, CKD, morbid obesity admitted with chest pain, sob, nausea, dizziness. Chest pain-atypical, unlikely ACS -no ischemia on ekg -cardiac enzymes wnl -no ischemic arrhythmias on tele -chest pain has resolved -will check a persantine nuclear stress test this am to further evaluate for ischemia and will repeat echo -if no sig ischemia on stress test, pt would be acceptable for discharge home from a cardiac standpoint with a plan for close outpatient follow up -ok to dc tele SOB-unclear etiology, mild -pt states that she refused here coreg last night and that her sob was better when not taking coreg, she is concerned that her HR goes too low from coreg and that this is making her sob -currently not sob and euvolemic -would not aggressively diurese as she is not sig volume overloaded and she has developed [place] on CKD in the past with diuretics -evaluation for ischemia as above HTN-adequately controlled -cont current regimen for now Atrial fibrillation-HR adequately controlled -cont Coreg and Eliquis -outpatient follow up and would consider an event monitor to re-evaluate HR control Dizziness-unclear -no sig bradycardia or pauses on tele during this admission -outpatient follow up HLD-LDL above goal -cont Lipitor and plan to consider uptitration as outpatient DMII -as per PMD
[2016-09-10] MEDS ORDERED: DIPYRIDAMOLE STRESS TEST 50 MG in DEXTROSE 5%-WATER - 40 ML IVPB ONE (11:00)
[2016-09-10] MEDS: LOSARTAN POTASSIUM 50 MG TABLET (FP) PO SCH (13:47)
[2016-09-10] MEDS: CARVEDILOL 6.25 MG TABLET (FP) PO SCH ×2 (13:47→17:24)
[2016-09-10] MEDS: APIXABAN 5 MG TABLET PO SCH (13:48)
[2016-09-10 13:57] VITALS: TEMP 98
[2016-09-10 18:46] VITALS: BP 126/82; PULSE 78
--- NOTE | 2016-09-11 08:37 | DS ---
Physical Exam: SUBJECTIVE: Patient seen and examined oob to chair. Denies chest pain. Has been walking to solarium, no SOB. OBJECTIVE: Vital Signs Period Temp Pulse Resp BP Sys/Weiss Pulse Ox Last 24 Hr 98 F-98.8 F 78-82 14-18 126-174/82-99 96 PHYSICAL EXAM GENERAL: The patient is awake, alert, and fully oriented, in no acute distress. NEUROLOGICAL: Cranial nerves II through XII grossly intact. Normal speech, gait not observed. LUNGS: Breath sounds equal, clear to auscultation bilaterally, no wheezes, no crackles, no accessory muscle use. HEART: Regular rate and rhythm, S1, S2 without murmur, rub or gallop. ABDOMEN: Soft, nontender, nondistended, normoactive bowel sounds, no guarding, no rebound, no hepatosplenomegaly, no masses. EXTREMITIES: 2+ pulses, warm, well-perfused, no edema. Laboratory Results - last 24 hr 09/10/16 05:35 Sodium 144 Potassium 4.3 D Chloride 105 Carbon Dioxide 27 Anion Gap 12 BUN 24 H Creatinine 1.3 H Creat Clearance w eGFR 41.37 Random Glucose 106 Calcium 9.5 Phosphorus 3.5 Magnesium 2.2 D Total Bilirubin 0.7 AST 14 L D ALT 26 Alkaline Phosphatase 86 Total Protein 7.2 Albumin 3.2 L HOSPITAL COURSE: Date of Admission:09/08/16 Date of Discharge: 09/11/16 Pre hospital course 61 yo obese f w hx of afib on eliquis, htn, osas, asthma, GERD, oa presents to the ER for evaluation of sob, and cp. she reports seeing unloader ( Wanda) last week and had increase in Lasix to 20mg BID. She reports taking Lasix sometimes once a day because of concern of her kidneys. She was also scheduled for a stress test for next . She reports having echo done 2016, and a stress test in 2014 which was normal. She reports that she was in ER at [facility] 2 weeks ago and was given IV Lasix for SOB symptoms. She reports yesterday she felt an achy mid sternum pain which lasted 1/2 of the day. She reports it was 3-4/10. She denies associated numbness, jaw claudication, heart palps, nausea, vomiting. She also reports getting sob suddenly at night which has disturbed her sleep. She denies RAMSAY. She reports having Sob for several months and had a sleep study test done showing mild sleep apnea 6mon ago. She also reports feeling a few presyncopal episodes lasting a few seconds. She reports that when she checked her B/P it was 167/105. Hospital course ACS ruled out: Chest pain resolved Troponins neg x 3 CXR unremarkable ECG not indicative of acute ischemic event; no ischemic arrythmias on telemetry Echo: LV normal; RV not well visualized; BLAE; mild MR; mild to moderate TR; trace to mild PI Stress: unremarkable Nuclear: small zone inferobasal fixed defect compatible with diaphragmantic attenuation and small apical thinning Atrial fibrillation Rate controlled Continued Eliquis Minutes to complete discharge: 35 Discharge Summary Reason For Visit: WEAKNESS Condition: Improved - Instructions Diet, Activity, Other Instructions: It is important that you make an appointment to follow up with Dr. Muñoz in two weeks. Return to the emergency department for any new or worsening symptoms. Referrals: Josue Muñoz MD [Staff Physician] - 2 Weeks Argelia Morrissey [Primary Care Provider] - Disposition: HOME - Home Medications Comprehensive Discharge Medication List: Ambulatory Orders Carvedilol [Coreg] 6.25 mg PO BID 01/30/12 Atorvastatin Ca [Lipitor] 10 mg PO DAILY #0 tablet 01/31/12 Apixaban [Eliquis -] 5 mg PO BID tablet 12/26/15 Furosemide [Lasix] 20 mg PO MOWEFR 08/24/16 Furosemide [Lasix -] 20 mg PO BID 09/08/16 Losartan Potassium 100 mg PO DAILY 09/08/16 This patient is new to me today: Yes Date on this admission: 09/11/16 Emergency Visit: Yes ED Registration Date: 09/08/16 Care time: The patient presented to the Emergency Department on the above date and was hospitalized for further evaluation of their emergent condition. Critical Care patient: No - Discharge Referral Referred to [facility] Med P.C.: No
== END 2016-09-10 20:53 | disposition home or self-care (01) ==
LOC: JER 14:31 → JERBED 19:52 → MERGE 19:52 → INTOOBSV 19:52 → J4W 09-09 19:22
PROVIDERS: ADMIT Internal Medicine; ATTEND Nurse Practitioner Acute Care
PROC: 3E033GC Introduction of Other Therapeutic Substance into Peripheral Vein, Percutaneous Approach (ICD-10-PCS; principal; 2016-09-08)
DX: R07.89 Other chest pain (principal); I50.9 Heart failure, unspecified; I10 Essential (primary) hypertension; I48.91 Unspecified atrial fibrillation; Z79.01 Long term (current) use of anticoagulants; K21.9 Gastro-esophageal reflux disease without esophagitis; J45.909 Unspecified asthma, uncomplicated; G47.33 Obstructive sleep apnea (adult) (pediatric); R60.9 Edema, unspecified; E11.9 Type 2 diabetes mellitus without complications; E66.01 Morbid (severe) obesity due to excess calories; Z68.42 Body mass index [BMI] 45.0-49.9, adult; R45.89 Other symptoms and signs involving emotional state; E78.5 Hyperlipidemia, unspecified
CPT/HCPCS: 36415; 71010-TC; 78452-TC; 80053; 80061; 81003; 81015; 82550; 83721; 83735; 83880; 84100; 84443; 84484; 85025; 85610; 86850; 86900; 86901; 87086; 93005; 93010; 93017; 93306-TC; 93970-TC; 99285-25; A9502; G0378; J1245

== ENCOUNTER 2017-03-20 00:07 | Observation (INO) | payer OTHER ==
--- NOTE | 2017-03-20 00:10 | PDOC ---
History of Present Illness - General History Source: Patient Exam Limitations: No Limitations - History of Present Illness Initial Comments: 03/20/17 01:39 Patient is a 61 year old female with a significant past medical history of afib on eliquis, htn, osas, asthma, GERD who was brought by EMS from home to the ED with complaints of Right big toe pain that began 2 days ago. Patient reports right big toe pain began 2 days ago while home suddenly with no signs of subsiding. She reports she is unable to walk and bear any weight on the right big toe. Patient states right big toe began to show signs of swelling 2 days ago secondary to pain. Patient received stress test september 10, results indicated negative. Patients ejection fraction is 74% and Echo and stress test results normal Denies chest pain, SOB. Denies fever, chills. Denies coughing, nausea, vomiting. Denies contact with sick individuals, out of state travel. Denies any other symptoms. Allergies: Aspirin Allergy, Shellfish Allergy, Seafood Allergy. Social history: No smoking. No alcohol. No illicit drugs. Fam hx: No family history of kidney disease; sister with DM, mother and father with HTN and CVA ( both ) Surgical history: None PMD: Dr. Morrissey <Ramone Marquez - Last Filed: 03/20/17 01:39> <Catalina Lara - Last Filed: 03/20/17 05:08> - General Stated Complaint: R FOOT MPAIN Past History <Ramone Marquez - Last Filed: 03/20/17 01:39> - Past Medical History Anemia: Yes Asthma: Yes Cardiac Disorders: Yes (A FIB) GI Disorders: (GERD) Disorders: Yes (UTI) HTN: Yes Hypercholesterolemia: Yes - Surgical History Appendectomy: Yes Orthopedic Surgery: Yes (R rotator cuff (04/19)) - Immunization History Immunization Up to Date: Yes - Suicide/Smoking/Psychosocial Hx Smoking Status: Yes Smoking History: Never smoked Have you smoked in the past 12 months: No Number of Cigarettes Smoked Daily: 0 If you are a former smoker, when did you quit?: 1989 Hx Alcohol Use: No Drug/Substance Use Hx: No Substance Use Type: None Hx Substance Use Treatment: No <Catalina Laar - Last Filed: 03/20/17 05:08> - Past Medical History Allergies/Adverse Reactions: Allergies Allergy/AdvReac Type Severity Reaction Status Date / Time aspirin Allergy Rash Verified 03/20/17 00:16 shellfish derived Allergy Verified 03/20/17 00:16 SEAFOOD Allergy Itching Uncoded 03/20/17 00:16 Home Medications: Ambulatory Orders Carvedilol [Coreg] 6.25 mg PO BID 01/30/12 Atorvastatin Ca [Lipitor] 10 mg PO DAILY #0 tablet 01/31/12 Apixaban [Eliquis -] 5 mg PO BID tablet 12/26/15 Furosemide [Lasix] 20 mg PO MOWEFR 08/24/16 Furosemide [Lasix -] 20 mg PO BID 09/08/16 Losartan Potassium 100 mg PO DAILY 09/08/16 Review of Systems - Review of Systems Able to Perform ROS?: Yes Comments:: 03/20/17 01:39 CONSTITUTIONAL: Absent: fever, chills, diaphoresis, generalized weakness, malaise, loss of appetite HEENT: Absent: rhinorrhea, nasal congestion, throat pain, throat swelling, difficulty swallowing, mouth swelling, ear pain, eye pain, visual Changes CARDIOVASCULAR: Absent: chest pain, syncope, palpitations, irregular heart rate, lightheadedness , peripheral edema RESPIRATORY: Absent: cough, shortness of breath, dyspnea with exertion, orthopnea, wheezing, stridor, hemoptysis GASTROINTESTINAL: Absent: abdominal pain, abdominal distension, nausea, vomiting, diarrhea, constipation, melena, hematochezia GENITOURINARY: Absent: dysuria, frequency, urgency, hesitancy, hematuria, flank pain, genital pain MUSCULOSKELETAL: +Right big toe pain. Absent: myalgia, arthralgia, SKIN: Absent: rash, itching, pallor HEMATOLOGIC/IMMUNOLOGIC: Absent: easy bleeding, easy bruising, lymphadenopathy, frequent infections ENDOCRINE: Absent: unexplained weight gain, unexplained weight loss, heat intolerance, cold intolerance NEUROLOGIC: Absent: headache, focal weakness or paresthesias, dizziness, unsteady gait, seizure, mental status changes, bladder or bowel incontinence PSYCHIATRIC: Absent: anxiety, depression, suicidal or homicidal ideation, hallucinations. All Other Systems: Reviewed and Negative <Ramone Marquez - Last Filed: 03/20/17 01:39> *Physical Exam - Vital Signs Last Vital Signs Temp Pulse Resp BP Pulse Ox 98.4 F 67 14 127/77 93 L 03/20/17 00:17 03/20/17 00:17 03/20/17 00:17 03/20/17 00:17 03/20/17 00:17 - Physical Exam Comments: 03/20/17 01:39 GENERAL: Well developed, well nourished. Awake and alert. No acute distress. HEENT: Normocephalic, atraumatic. PERRLA, EOMI. No conjunctival pallor. Sclera are non- icteric. Moist mucous membranes. Oropharynx is clear. NECK: Supple. Full ROM. No JVD. Carotid pulses 2+ and symmetric, without bruits. No thyromegaly. No lymphadenopathy. CARDIOVASCULAR: +Irregularly irregular heart beat. Regular rhythm. No murmurs, rubs, or gallops. Distal pulses are 2+ and symmetric. PULMONARY: No evidence of respiratory distress. Lungs clear to auscultation bilaterally. No wheezing, rales or rhonchi. ABDOMINAL: +Morbidly obese. Soft. Non-tender. Non-distended. No rebound or guarding. No organomegaly. Normoactive bowel sounds. MUSCULOSKELETAL Normal range of motion at all joints. No bony deformities or tenderness. No CVA tenderness. EXTREMITIES: +Right big toe edema. +Right big toe edema on dorsal side. No cyanosis. No clubbing. No edema. No calf tenderness. SKIN: Warm and dry. Normal capillary refill. No rashes. No jaundice. NEUROLOGICAL: Alert, awake, appropriate. Cranial nerves 2-12 intact. No deficits to light touch and temperature in face, upper extremities and lower extremities. No motor deficits in the in face, upper extremities and lower extremities. Normoreflexic in the upper and lower extremities. Normal speech. Toes are down-going bilaterally. PSYCHIATRIC: Cooperative. Good eye contact. Appropriate mood and affect. <Ramone Marquez - Last Filed: 03/20/17 01:39> ED Treatment Course - LABORATORY CBC & Chemistry Diagram: 03/20/17 00:20 03/20/17 00:37 - ADDITIONAL ORDERS Additional order review: Laboratory Results 03/20/17 03/20/17 00:37 00:37 Sodium 137 Potassium 3.6 Chloride 101 Carbon Dioxide 27 Anion Gap 9 BUN 10 D Creatinine 1.0 D Creat Clearance w eGFR 56.00 Random Glucose 119 H Uric Acid 8.9 H Calcium 8.8 Total Bilirubin 0.9 D AST 11 L D ALT 18 D Alkaline Phosphatase 101 Total Protein 7.5 Albumin 3.3 L 03/20/17 00:20 RBC 4.49 MCV 87.0 MCHC 32.6 RDW 16.1 H D MPV 8.3 Neutrophils % 52.5 Lymphocytes % 25.5 Monocytes % 6.1 Eosinophils % 15.1 H D Basophils % 0.8 <Ramone Marquez - Last Filed: 03/20/17 01:39> - LABORATORY CBC & Chemistry Diagram: 03/20/17 00:20 03/20/17 00:37 <Catalina Lara - Last Filed: 03/20/17 05:08> *DC/Admit/Observation/Transfer - Attestations Scribe Attestion: 03/20/17 01:39 Documentation prepared by Ramone Marquez, acting as registered medical assistant for Catalina Lara MD/DO. <Ramone Marquez - Last Filed: 03/20/17 01:39> - Discharge Dispostion Admit: Yes <Catalina Lara - Last Filed: 03/20/17 05:08> Diagnosis at time of Disposition: Gout Qualifiers: Gout site: toe Gout etiology: unspecified cause Chronicity: acute Laterality: right Qualified Code(s): M10.9 - Gout, unspecified - Referrals Referrals: Argelia Morrissey [Primary Care Provider] -
[2017-03-20 00:19] VITALS: BMI 47.2
[2017-03-20 00:36] LABS: BASOPHIL 0.8 % (0-2.0); EOSINOPHIL 15.1 % (0-4.5); MCH 28.3 pg (25.7-33.7); MCHC 32.6 g/dl (32.0-36.0); MEAN PLT VOLUME 8.3 fl (7.5-11.1); NEUTROPHILS 52.5 % (42.8-82.8); PLATELET COUNT 265 K/MM3 (134-434); RDW 16.1 % (11.6-15.6); WHITE BLOOD COUNT 12.5 K/mm3 (4.0-10.0)
[2017-03-20 01:17] LABS: ALBUMIN 3.3 g/dl (3.4-5.0); ANION GAP 9 (8-16); BILIRUBIN,TOTAL 0.9 mg/dL (0.2-1.0); CALCIUM 8.8 mg/dL (8.5-10.1); CO2 27 mmol/L (21-32); GLUCOSE,RANDOM 119 mg/dL (74-106); SGOT/AST 11 U/L (15-37); SGPT/ALT 18 U/L (12-78); TOT PROT 7.5 g/dl (6.4-8.2)
[2017-03-20 01:18] LABS: ALK PHOS 101 U/L (45-117)
[2017-03-20] MEDS ORDERED: ACETAMINOPHEN 325 MG TABLET (FP) PO ONE (01:39)
[2017-03-20] MEDS ORDERED: ACETAMINOPHEN 325 MG TABLET (FP) ONE (01:43)
[2017-03-20] MEDS ORDERED: DEXAMETHASONE SOD PHOSPHATE 20 MG/5 ML VIAL IVPB ONE (04:32)
[2017-03-20] MEDS ORDERED: DEXAMETHASONE SOD PHOSPHATE 10 MG/1 ML VIAL ONE ×2 (04:35→04:39)
--- NOTE | 2017-03-20 11:12 | PDOC ---
*Physical Exam - Vital Signs Last Vital Signs Temp Pulse Resp BP Pulse Ox 98.1 F 80 20 128/81 99 03/20/17 10:38 03/20/17 10:38 03/20/17 10:38 03/20/17 10:38 03/20/17 10:38 ED Treatment Course - LABORATORY CBC & Chemistry Diagram: 03/20/17 00:20 03/20/17 00:37 - ADDITIONAL ORDERS Additional order review: Laboratory Results 03/20/17 03/20/17 00:37 00:37 Sodium 137 Potassium 3.6 Chloride 101 Carbon Dioxide 27 Anion Gap 9 BUN 10 D Creatinine 1.0 D Creat Clearance w eGFR 56.00 Random Glucose 119 H Uric Acid 8.9 H Calcium 8.8 Total Bilirubin 0.9 D AST 11 L D ALT 18 D Alkaline Phosphatase 101 Total Protein 7.5 Albumin 3.3 L 03/20/17 00:20 RBC 4.49 MCV 87.0 MCHC 32.6 RDW 16.1 H D MPV 8.3 Neutrophils % 52.5 Lymphocytes % 25.5 Monocytes % 6.1 Eosinophils % 15.1 H D Basophils % 0.8 - Medications Given in the ED: ED Medications Discontinued Medications Generic Name Dose Route Start Last Admin Trade Name Yvon PRN Reason Stop Dose Admin Acetaminophen 650 mg 03/20/17 01:39 03/20/17 01:50 Tylenol - PO 03/20/17 01:40 650 mg ONCE ONE Administration Dexamethasone Sodium Phosphate 20 mg 03/20/17 04:32 03/20/17 04:44 Decadron Injection - IVPB 03/20/17 04:33 20 mg ONCE ONE Administration Oxycodone/Acetaminophen 1 combo 03/20/17 01:39 03/20/17 01:52 Percocet 5/325 - PO 03/20/17 01:40 Not Given ONCE ONE *DC/Admit/Observation/Transfer Diagnosis at time of Disposition: Gout Qualifiers: Gout site: toe Gout etiology: unspecified cause Chronicity: acute Laterality: right Qualified Code(s): M10.9 - Gout, unspecified - Referrals - Patient Instructions - Post Discharge Activity
--- NOTE | 2017-03-20 11:52 | PN ---
Teaching Attending Note Name of Resident: Kevin Low ATTENDING PHYSICIAN STATEMENT I saw and evaluated the patient. I reviewed the resident's note and discussed the case with the resident. I agree with the resident's findings and plan as documented. SUBJECTIVE: OBJECTIVE: Vital Signs Period Temp Pulse Resp BP Sys/Weiss Pulse Ox Last 24 Hr 98.1 F-98.4 F 67-80 14-20 127-128/77-81 93-99 Home Medications Medication Instructions Recorded Atorvastatin Ca [Lipitor] 10 mg PO DAILY #0 tablet 01/31/12 Furosemide [Lasix -] 20 mg PO DAILY 09/08/16 Losartan Potassium 50 mg PO DAILY 09/08/16 Albuterol Sulfate Inhaler - 1 - 2 inh PO Q4H PRN 03/20/17 [Ventolin Hfa Inhaler -] Apixaban [Eliquis -] 5 mg PO DAILY 03/20/17 Metoprolol Succinate [Toprol Xl -] 25 mg PO DAILY 03/20/17 Laboratory Tests 03/20/17 03/20/17 03/20/17 00:20 00:37 00:37 WBC 12.5 H D RBC 4.49 Hgb 12.7 D Hct 39.1 MCV 87.0 MCH 28.3 D MCHC 32.6 RDW 16.1 H D Plt Count 265 D MPV 8.3 Neutrophils % 52.5 Lymphocytes % 25.5 Monocytes % 6.1 Eosinophils % 15.1 H D Basophils % 0.8 ESR 56 H Sodium 137 Potassium 3.6 Chloride 101 Carbon Dioxide 27 Anion Gap 9 BUN 10 D Creatinine 1.0 D Creat Clearance w eGFR 56.00 Random Glucose 119 H Uric Acid Calcium 8.8 Total Bilirubin 0.9 D AST 11 L D ALT 18 D Alkaline Phosphatase 101 Total Protein 7.5 Albumin 3.3 L 03/20/17 00:37 WBC RBC Hgb Hct MCV MCH MCHC RDW Plt Count MPV Neutrophils % Lymphocytes % Monocytes % Eosinophils % Basophils % ESR Sodium Potassium Chloride Carbon Dioxide Anion Gap BUN Creatinine Creat Clearance w eGFR Random Glucose Uric Acid 8.9 H Calcium Total Bilirubin AST ALT Alkaline Phosphatase Total Protein Albumin ASSESSMENT AND PLAN:
--- NOTE | 2017-03-20 11:55 | HP ---
CHIEF COMPLAINT:Left Toe pain. PCP:Dr. Keli Morrissey HISTORY OF PRESENT ILLNESS: 60 year old female with a history of HTN, HLD, Afib on Eliquis, and GERD presents with one day history of worsening foot pain. She describes constant non -radiating 10/10 sharp big toe. Pain is aggravated by ambulating with no alleviating factors. Toe has swollen and has gotten point where it was unbearable which prompted call to EMS. Denies CP,BACK,SOB, palpitations, abdominal pain, fever, chills, N/V. ER course was notable for: (1)Given dexamethasone (2)Foot Xray negative for acute pathology (3)LE duplex was negative for DVT Recent Travel: Denies. PAST MEDICAL HISTORY: HTN, HLD, Afib on Eliquis, and GERD PAST SURGICAL HISTORY: Social History: Smoking:never Alcohol:none Drugs: none Family History: sister with DM, mother and father with HTN and CVA (both ) Allergies aspirin Allergy (Verified 03/20/17 00:16) Rash shellfish derived Allergy (Verified 03/20/17 00:16) SEAFOOD Allergy (Uncoded 03/20/17 00:16) Itching HOME MEDICATIONS: Home Medications Medication Instructions Recorded Carvedilol [Coreg] 6.25 mg PO BID 01/30/12 Atorvastatin Ca [Lipitor] 10 mg PO DAILY #0 tablet 01/31/12 Apixaban [Eliquis -] 5 mg PO BID tablet 12/26/15 Furosemide [Lasix -] 20 mg PO BID 09/08/16 Losartan Potassium 100 mg PO DAILY 09/08/16 REVIEW OF SYSTEMS CONSTITUTIONAL: Absent: fever, chills, diaphoresis, generalized weakness, malaise, loss of appetite, weight change HEENT: Absent: rhinorrhea, nasal congestion, throat pain, throat swelling, difficulty swallowing, mouth swelling, ear pain, eye pain, visual changes CARDIOVASCULAR: Absent: chest pain, syncope, palpitations, irregular heart rate, lightheadedness , peripheral edema RESPIRATORY: Absent: cough, shortness of breath, dyspnea with exertion, orthopnea, wheezing, stridor, hemoptysis GASTROINTESTINAL: Absent: abdominal pain, abdominal distension, nausea, vomiting, diarrhea, constipation, melena, hematochezia GENITOURINARY: Absent: dysuria, frequency, urgency, hesitancy, hematuria, flank pain, genital pain MUSCULOSKELETAL: joint swelling, Absent: myalgia, arthralgia, back pain, neck pain SKIN: Absent: rash, itching, pallor HEMATOLOGIC/IMMUNOLOGIC: Absent: easy bleeding, easy bruising, lymphadenopathy, frequent infections ENDOCRINE: Absent: unexplained weight gain, unexplained weight loss, heat intolerance, cold intolerance NEUROLOGIC: Absent: headache, focal weakness or paresthesias, dizziness, unsteady gait, seizure, mental status changes, bladder or bowel incontinence PSYCHIATRIC: Absent: anxiety, depression, suicidal or homicidal ideation, hallucinations. PHYSICAL EXAMINATION Vital Signs - 24 hr 03/20/17 03/20/17 00:17 10:38 Temperature 98.4 F 98.1 F Pulse Rate 67 80 Pulse Rate [ 80 Right] Respiratory 14 18 Rate Blood Pressure 127/77 128/81 Blood Pressure 128/81 [Right Arm] O2 Sat by Pulse 93 L 99 Oximetry (%) GENERAL: AAOx3, NAD HEAD: NC/AT EYES: PERRLA, EOMI, sclera anicteric, conjunctiva clear. No lid lag. EARS, NOSE, THROAT: Moist mucous membranes. NECK: supple, no jvd LUNGS: CTAB No wheezes, and no crackles. No accessory muscle use. HEART: RRR, normal S1 and S2 without murmur, rub or gallop. ABDOMEN: Soft,obese, nontender, not distended, normoactive bowel sounds, no guarding, no rebound, no masses. MUSCULOSKELETAL: decreased ROM of right foot 2/2 pain. 1st Right toe tenderness. UPPER EXTREMITIES: 2+ pulses, warm, well-perfused. No cyanosis. No clubbing. No peripheral edema. LOWER EXTREMITIES: 2+ pulses, warm, well-perfused. No calf tenderness. No peripheral edema. Right 1st toe erythema and indurated. NEUROLOGICAL: Cranial nerves II-XII intact. Normal speech. PSYCHIATRIC: Cooperative. Good eye contact. Appropriate mood and affect. Laboratory Results - last 24 hr 03/20/17 03/20/17 03/20/17 00:20 00:37 00:37 WBC 12.5 H D RBC 4.49 Hgb 12.7 D Hct 39.1 MCV 87.0 MCH 28.3 D MCHC 32.6 RDW 16.1 H D Plt Count 265 D MPV 8.3 Neutrophils % 52.5 Lymphocytes % 25.5 Monocytes % 6.1 Eosinophils % 15.1 H D Basophils % 0.8 ESR 56 H Sodium 137 Potassium 3.6 Chloride 101 Carbon Dioxide 27 Anion Gap 9 BUN 10 D Creatinine 1.0 D Creat Clearance w eGFR 56.00 Random Glucose 119 H Uric Acid Calcium 8.8 Total Bilirubin 0.9 D AST 11 L D ALT 18 D Alkaline Phosphatase 101 Total Protein 7.5 Albumin 3.3 L 03/20/17 00:37 WBC RBC Hgb Hct MCV MCH MCHC RDW Plt Count MPV Neutrophils % Lymphocytes % Monocytes % Eosinophils % Basophils % ESR Sodium Potassium Chloride Carbon Dioxide Anion Gap BUN Creatinine Creat Clearance w eGFR Random Glucose Uric Acid 8.9 H Calcium Total Bilirubin AST ALT Alkaline Phosphatase Total Protein Albumin ASSESSMENT/PLAN: 60 year old female with a history of HTN, HLD, Afib on Eliquis, and GERD presents with one day history of worsening foot pain placed on observation. Problem List - Problem (1) Toe pain, right Assessment/Plan: most likely acute gouty attack. * Uric acid, ESR and CMP sent. * Administered Steroids and NSAID for inflammation. * XRAY of foot * US of Lower ext. to r/o DVT. Visit type - Emergency Visit Emergency Visit: Yes ED Registration Date: 03/20/17 Care time: The patient presented to the Emergency Department on the above date and was hospitalized for further evaluation of their emergent condition. - New Patient This patient is new to me today: Yes Date on this admission: 03/22/17 - Critical Care Critical Care patient: No
[2017-03-20 12:26] VITALS: BP 122/77; PULSE 78; TEMP 98.3
--- NOTE | 2017-03-22 16:36 | DS ---
Physical Exam: SUBJECTIVE: Patient seen and examined at bedside. Pain has improved significantly. Patient able to ambulate without assistance. Denies BACK, SOB, palpitations, N/V. OBJECTIVE: Vital Signs Temperature 98.3 F 03/20/17 12:25 Pulse Rate 78 03/20/17 12:25 Respiratory Rate 18 03/20/17 12:25 Blood Pressure 122/77 03/20/17 12:25 O2 Sat by Pulse Oximetry (%) 98 03/20/17 12:25 PHYSICAL EXAM GENERAL: AAOx3, NAD HEAD: NC/AT EYES: PERRLA, EOMI, sclera anicteric, conjunctiva clear. No lid lag. EARS, NOSE, THROAT: Moist mucous membranes. NECK: supple, no jvd LUNGS: CTAB No wheezes, and no crackles. No accessory muscle use. HEART: RRR, normal S1 and S2 without murmur, rub or gallop. ABDOMEN: Soft,obese, nontender, not distended, normoactive bowel sounds, no guarding, no rebound, no masses. MUSCULOSKELETAL: decreased ROM of right foot 2/2 pain. 1st Right toe tenderness. UPPER EXTREMITIES: 2+ pulses, warm, well-perfused. No cyanosis. No clubbing. No peripheral edema. LOWER EXTREMITIES: 2+ pulses, warm, well-perfused. No calf tenderness. No peripheral edema. Right 1st toe erythema and indurated. NEUROLOGICAL: Cranial nerves II-XII intact. Normal speech. PSYCHIATRIC: Cooperative. Good eye contact. Appropriate mood and affect. LABS Laboratory Last Values WBC 12.5 K/mm3 (4.0-10.0) H D 03/20/17 00:20 RBC 4.49 M/mm3 (3.60-5.2) 03/20/17 00:20 Hgb 12.7 GM/dL (10.7-15.3) D 03/20/17 00:20 Hct 39.1 % (32.4-45.2) 03/20/17 00:20 MCV 87.0 fl (80-96) 03/20/17 00:20 MCH 28.3 pg (25.7-33.7) D 03/20/17 00:20 MCHC 32.6 g/dl (32.0-36.0) 03/20/17 00:20 RDW 16.1 % (11.6-15.6) H D 03/20/17 00:20 Plt Count 265 K/MM3 (134-434) D 03/20/17 00:20 MPV 8.3 fl (7.5-11.1) 03/20/17 00:20 Neutrophils % 52.5 % (42.8-82.8) 03/20/17 00:20 Lymphocytes % 25.5 % (8-40) 03/20/17 00:20 Monocytes % 6.1 % (3.8-10.2) 03/20/17 00:20 Eosinophils % 15.1 % (0-4.5) H D 03/20/17 00:20 Basophils % 0.8 % (0-2.0) 03/20/17 00:20 ESR 56 mm/hr (0-30) H 03/20/17 00:37 Sodium 137 mmol/L (136-145) 03/20/17 00:37 Potassium 3.6 mmol/L (3.5-5.1) 03/20/17 00:37 Chloride 101 mmol/L (98-107) 03/20/17 00:37 Carbon Dioxide 27 mmol/L (21-32) 03/20/17 00:37 Anion Gap 9 (8-16) 03/20/17 00:37 BUN 10 mg/dL (7-18) D 03/20/17 00:37 Creatinine 1.0 mg/dL (0.55-1.02) D 03/20/17 00:37 Creat Clearance w eGFR 56.00 (>60) 03/20/17 00:37 Random Glucose 119 mg/dL (74-106) H 03/20/17 00:37 Uric Acid 8.9 mg/dL (2.6-7.2) H 03/20/17 00:37 Calcium 8.8 mg/dL (8.5-10.1) 03/20/17 00:37 Total Bilirubin 0.9 mg/dL (0.2-1.0) D 03/20/17 00:37 AST 11 U/L (15-37) L D 03/20/17 00:37 ALT 18 U/L (12-78) D 03/20/17 00:37 Alkaline Phosphatase 101 U/L (45-117) 03/20/17 00:37 Total Protein 7.5 g/dl (6.4-8.2) 03/20/17 00:37 Albumin 3.3 g/dl (3.4-5.0) L 03/20/17 00:37 IMAGING: * RAD/FOOT-RIGHT Right foot: Swelling. Pain. AP, lateral and oblique views reveal bunion formation by the first MTP joint, partially flexed toes , calcaneal spurring with other degenerative changes and swelling. An acute fracture subluxation is not seen. Blastic or lytic changes are not visualized. If symptoms persist, further imaging may be of help. Reported By: Everett Poep MD 03/20/17805 Technologist: Oscar Velez Transcribed Date/Time: 805 Registered Nurse Bone Marrow Transplant: Everett Pope * US/DUPLEX VASCUL US-1 LEG EXAM: Right lower extremity venous duplex. INDICATION: Right leg pain and swelling. TECHNIQUE: Real-time grayscale, color Doppler and spectral Doppler sonogram of the deep veins in the right lower extremity was performed with the technologist utilizing compression maneuvers. The right common femoral vein including its junction with the greater saphenous vein, the femoral, profunda femoral, popliteal and posterior tibial veins were interrogated in the right lower extremity. Images are submitted for review. COMPARISON: 09/08/2016 lower extremity duplex. FINDINGS: There is no evidence of deep vein thrombosis in the right lower extremity. The interrogated veins, as listed above, demonstrate compressibility and flow related color Doppler signal. IMPRESSION: No evidence of right lower extremity deep vein thrombosis, as above. Reported By: Vance Robertson MD 03/20/17 0913 HOSPITAL COURSE: 60 year old female with a history of HTN, HLD, Afib on Eliquis, and GERD presents with one day history of worsening foot pain. She describes constant non -radiating 10/10 sharp big toe. Pain is aggravated by ambulating with no alleviating factors. Toe has swollen and has gotten point where it was unbearable which prompted call to EMS. XRAY of foot and US of lower ext were negative for acute pathology reported above. Labs showed elevated Uric Acid. Patient was treated with dexamethasone for acute gouty attack. She responded well to treatment and was deemed stable for discharge. She will follow up with PCP in one week. Date of Admission:03/20/17 Date of Discharge: 03/22/17 Minutes to complete discharge: 51 Discharge Summary Reason For Visit: GOUT (SHORT STAY) Condition: Stable - Instructions Diet, Activity, Other Instructions: You have been treated for acute gouty attack. Please try to avoid red meat and seafood alcohol, such as beer, wine, and hard alcohol foods and drinks that have high-fructose corn syrup (that includes most sodas and store-bought cakes and cookies). You will need to follow up with your primary doctor in one week to discuss further management longterm for this gout. Increase activity as tolerated. If symptoms worsen or you develop fever or chills please return to ED immediately. Referrals: Argelia Morrissey [Primary Care Provider] - Disposition: HOME - Home Medications Comprehensive Discharge Medication List: Ambulatory Orders Atorvastatin Ca [Lipitor] 10 mg PO DAILY #0 tablet 01/31/12 Furosemide [Lasix -] 20 mg PO DAILY 09/08/16 Losartan Potassium 50 mg PO DAILY 09/08/16 Albuterol Sulfate Inhaler - [Ventolin Hfa Inhaler -] 1 - 2 inh PO Q4H PRN Apixaban [Eliquis -] 5 mg PO DAILY 03/20/17 Metoprolol Succinate [Toprol Xl -] 25 mg PO DAILY 03/20/17 Problem List - Problems (1) Toe pain, right This patient is new to me today: Yes Date on this admission: 03/22/17 Emergency Visit: Yes ED Registration Date: 03/20/17 Care time: The patient presented to the Emergency Department on the above date and was hospitalized for further evaluation of their emergent condition. Critical Care patient: No - Discharge Referral Referred to [facility] Med P.C.: No
== END 2017-03-20 12:25 | disposition home or self-care (01) ==
LOC: JER 00:07 → JERBED 05:46
PROVIDERS: ADMIT Internal Medicine; ATTEND Internal Medicine
PROC: 3E033GC Introduction of Other Therapeutic Substance into Peripheral Vein, Percutaneous Approach (ICD-10-PCS; principal; 2017-03-20)
DX: M10.9 Gout, unspecified (principal); I48.91 Unspecified atrial fibrillation; I10 Essential (primary) hypertension; E78.5 Hyperlipidemia, unspecified; J45.909 Unspecified asthma, uncomplicated; K21.9 Gastro-esophageal reflux disease without esophagitis; D64.9 Anemia, unspecified; Z79.01 Long term (current) use of anticoagulants; Z91.013 Allergy to seafood; Z88.6 Allergy status to analgesic agent
CPT/HCPCS: 36415; 73630-TC-RT; 80053; 84550; 85025; 85651; 93971-TC; 96374; 99284-25; G0378; J8540

== ENCOUNTER 2017-05-02 13:43 | Observation (INO) | payer OTHER ==
[2017-05-02 14:03] VITALS: BMI 45.3
--- NOTE | 2017-05-02 15:07 | PDOC ---
History of Present Illness <Lucio Alaniz - Last Filed: 05/02/17 18:36> - General History Source: Patient - History of Present Illness Initial Comments: 05/02/17 15:24 The patient is a 62 year old female, with a significant past medical history of afib on eliquis, htn, osas, asthma, GERD, chronic back pain, who presents to the emergency department with posterior right knee pain since last night. The patient states her pain is 9/10 and localized to her right knee. She denies any trauma. She denies swelling. She reports she cannot bear weight to her right lower extremity secondary to pain. She states she had been experiencing increased sciatica pain for the past week or so and was given Cyclobenzaprine at Dr. Rosenberg office. She reports experiencing her sciatica pain at this current time. 5/10 in severity, but tolerable when compared to the right knee pain. She denies chest pain, shortness of breath, headache and dizziness. She denies fever, chills, nausea, vomit, diarrhea and constipation. She denies dysuria, frequency, urgency and hematuria. Allergies: aspirin <Malissa Edmond - Last Filed: 05/02/17 18:40> - General Chief Complaint: Back Pain Stated Complaint: BACK PAIN Time Seen by Provider: 05/02/17 15:07 Past History - Past Medical History Anemia: Yes Asthma: Yes Cardiac Disorders: Yes (A FIB) COPD: No GI Disorders: (GERD) Disorders: Yes (UTI) HTN: Yes Hypercholesterolemia: Yes - Surgical History Appendectomy: Yes Orthopedic Surgery: Yes (R rotator cuff (04/19)) - Immunization History Immunization Up to Date: Yes - Suicide/Smoking/Psychosocial Hx Smoking Status: Yes Smoking History: Never smoked Have you smoked in the past 12 months: No Number of Cigarettes Smoked Daily: 0 If you are a former smoker, when did you quit?: 1989 Hx Alcohol Use: No Drug/Substance Use Hx: No Substance Use Type: None Hx Substance Use Treatment: No <Lucio Alaniz - Last Filed: 05/02/17 18:36> <Malissa Edmond - Last Filed: 05/02/17 18:40> - Past Medical History Allergies/Adverse Reactions: Allergies Allergy/AdvReac Type Severity Reaction Status Date / Time aspirin Allergy Rash Verified 05/02/17 14:03 shellfish derived Allergy Verified 05/02/17 14:03 SEAFOOD Allergy Itching Uncoded 05/02/17 14:03 Home Medications: Ambulatory Orders Atorvastatin Ca [Lipitor] 10 mg PO DAILY #0 tablet 01/31/12 Furosemide [Lasix -] 20 mg PO DAILY 09/08/16 Losartan Potassium 50 mg PO DAILY 09/08/16 Albuterol Sulfate Inhaler - [Ventolin Hfa Inhaler -] 1 - 2 inh PO Q4H PRN Apixaban [Eliquis -] 5 mg PO DAILY 03/20/17 Metoprolol Succinate [Toprol Xl -] 25 mg PO DAILY 03/20/17 Ondansetron [Zofran *Odt*] 8 mg SL TID #30 od.tablet 05/02/17 Oxycodone HCl/Acetaminophen [Percocet 5-325 mg Tablet] 1 - 2 tab PO Q4H #20 tablet MDD 4 05/02/17 Review of Systems - Review of Systems Able to Perform ROS?: Yes Comments:: 05/02/17 15:24 GENERAL/CONSTITUTIONAL: No fever or chills. No weakness. HEAD, EYES, EARS, NOSE AND THROAT: No change in vision. No ear pain or discharge. No sore throat. CARDIOVASCULAR: No chest pain or shortness of breath. RESPIRATORY: No cough, wheezing, or hemoptysis. GASTROINTESTINAL: No nausea, vomiting, diarrhea or constipation. GENITOURINARY: No dysuria, frequency, or change in urination. MUSCULOSKELETAL: (+) right knee pain. No joint or muscle swelling. No neck pain. SKIN: No rash NEUROLOGIC: No headache, vertigo, loss of consciousness, or change in strength/ sensation. ENDOCRINE: No increased thirst. No abnormal weight change. HEMATOLOGIC/LYMPHATIC: No anemia, easy bleeding, or history of blood clots. ALLERGIC/IMMUNOLOGIC: No hives or skin allergy. <Malissa Edmond - Last Filed: 05/02/17 18:40> *Physical Exam - Vital Signs Last Vital Signs Temp Pulse Resp BP Pulse Ox 98 F 59 L 18 140/80 99 05/02/17 14:00 05/02/17 14:00 05/02/17 14:00 05/02/17 14:00 05/02/17 14:00 <Lucio Alaniz - Last Filed: 05/02/17 18:36> - Vital Signs Last Vital Signs Temp Pulse Resp BP Pulse Ox 98 F 59 L 18 140/80 99 05/02/17 14:00 05/02/17 14:00 05/02/17 14:00 05/02/17 14:00 05/02/17 14:00 - Physical Exam Comments: 05/02/17 15:24 GENERAL: Awake, alert, and fully oriented, in no acute distress HEAD: No signs of trauma EYES: PERRLA, EOMI, sclera anicteric, conjunctiva clear ENT: Auricles normal inspection, hearing grossly normal, nares patent, oropharynx clear without exudates. Moist mucosa NECK: Normal ROM, supple, no lymphadenopathy, JVD, or masses LUNGS: Breath sounds equal, clear to auscultation bilaterally. No wheezes, and no crackles HEART: Regular rate and rhythm, normal S1 and S2, no murmurs, rubs or gallops ABDOMEN: Soft, nontender, normoactive bowel sounds. No guarding, no rebound. No masses EXTREMITIES: (+) right knee swelling with mild tenderness to joint spaces of right knee. Normal range of motion. No clubbing or cyanosis. No cords, erythema, NEUROLOGICAL: Cranial nerves II through XII grossly intact. Normal speech, SKIN: Warm, Dry, normal turgor, no rashes or lesions noted. <Malissa Edmond - Last Filed: 05/02/17 18:40> ED Treatment Course - LABORATORY CBC & Chemistry Diagram: 05/02/17 16:00 <Lucio Alaniz - Last Filed: 05/02/17 18:36> - LABORATORY CBC & Chemistry Diagram: 05/02/17 16:00 - RADIOLOGY Radiograph Interpretation: EXAM#: TYPE/EXAM: RESULT: [id number] RAD/KNEE 3 POS-RIGHT EXAM: Right knee x-ray - AP and lateral views. INDICATION: Right knee pain and arthritis. COMPARISON: None available. FINDINGS: There is severe narrowing of the medial femorotibial and patellofemoral joint spaces with subchondral sclerosis and marginal osteophyte formation. There is mild degenerative lateral subluxation of the tibia in relation to the distal femur. No evidence of acute fracture or dislocation in the right knee. There is a small right suprapatellar effusion. There is an. At the at the insertion of the quadriceps tendon. There are posterior osseous densities projecting over the intercondylar eminence which may represent intra-articular loose bodies. IMPRESSION: Severe osteoarthritic changes in the patellofemoral and medial femorotibial compartments as described above. Posterior intercondylar ossifications are suspicious for loose bodies. No evidence of acute fracture or dislocation in the right knee. Small suprapatellar effusion. Reported By: Vance Robertson DO 05/02/17 2683 <Malissa Edmond - Last Filed: 05/02/17 18:40> *DC/Admit/Observation/Transfer - Discharge Dispostion Admit: No - Attestations Physician Attestion: 05/02/17 15:07 I, Dr. Lucio Alaniz, attest that this document has been prepared under my direction and personally reviewed by me in its entirety. I further attest, that it accurately reflects all work, treatment, procedures and medical decision -making performed by me. <Lucio Alaniz - Last Filed: 05/02/17 18:36> - Attestations Scribe Attestion: 05/02/17 15:25 Documentation prepared by Malissa Edmond, acting as medical secretary teacher for Lucio Alaniz DO <Malissa Edmond - Last Filed: 05/02/17 18:40> Diagnosis at time of Disposition: Right knee DJD Qualifiers: Osteoarthritis type: primary Qualified Code(s): M17.11 - Unilateral primary osteoarthritis, right knee - Discharge Dispostion Disposition: HOME Condition at time of disposition: Improved - Prescriptions Prescriptions: Ondansetron [Zofran *Odt*] 8 mg SL TID #30 od.tablet Oxycodone HCl/Acetaminophen [Percocet 5-325 mg Tablet] 1 - 2 tab PO Q4H #20 tablet MDD 4 - Referrals Referrals: Argelia Morrissey [Primary Care Provider] - Rasta Baker MD [Staff Physician] - Junito Glez MD [Staff Physician] - - Patient Instructions Printed Discharge Instructions: DI for Osteoarthritis, DI for Arthritis - Post Discharge Activity
[2017-05-02] MEDS ORDERED: ONDANSETRON *ODT* 4 MG TABLET SL ONE (17:01)
[2017-05-02 17:02] LABS: MCH 32.1 pg (25.7-33.7); MCHC 33.4 g/dl (32.0-36.0); MEAN PLT VOLUME 9.7 fl (7.5-11.1); PLATELET COUNT 192 K/MM3 (134-434); RDW 12.7 % (11.6-15.6); WHITE BLOOD COUNT 7.6 K/mm3 (4.0-10.0)
[2017-05-02] MEDS ORDERED: ONDANSETRON 8 MG TABLET (FP) PO ONE (17:25)
[2017-05-02 20:29] LABS: ERYTHROCYTE SEDIMENTATION RATE 33 mm/hr (0-30)
[2017-05-02] MEDS ORDERED: MECLIZINE HCL 25 MG TABLET (FP) PO STA (21:38)
[2017-05-02] MEDS ORDERED: ONDANSETRON 4 MG/2 ML VIAL IVPUSH STA (21:38)
[2017-05-02] MEDS ORDERED: SODIUM CHLORIDE 1,000 ML IV STA (21:38)
[2017-05-02] MEDS ORDERED: ONDANSETRON 4 MG/2 ML VIAL ONE (21:48)
[2017-05-02] MEDS ORDERED: MECLIZINE HCL 25 MG TABLET (FP) ONE (21:48)
[2017-05-03] MEDS ORDERED: SODIUM CHLORIDE 1,000 ML IV STA (02:50)
[2017-05-03 03:46] LABS: URINE APPEARANCE CLEAR; URINE BILIRUBIN NEGATIVE (NEGATIVE); URINE BLOOD NEGATIVE (NEGATIVE); URINE COLOR YELLOW; URINE GLUCOSE (UA) NEGATIVE (NEGATIVE); URINE KETONE NEGATIVE (NEGATIVE); URINE LEUK ESTERASE NEGATIVE (NEGATIVE); URINE NITRITE NEGATIVE (NEGATIVE); URINE PROTEIN NEGATIVE (NEGATIVE); URINE UROBILINOGEN NEGATIVE mg/dL (0.2-1.0)
--- NOTE | 2017-05-03 03:50 | PDOC ---
*Physical Exam - Vital Signs Last Vital Signs Temp Pulse Resp BP Pulse Ox 98.1 F 62 14 126/68 99 05/02/17 21:32 05/02/17 21:32 05/02/17 21:32 05/02/17 21:32 05/02/17 14:00 <Fortino Hale - Last Filed: 05/03/17 06:35> - Vital Signs Last Vital Signs Temp Pulse Resp BP Pulse Ox 98.7 F 72 18 141/102 100 05/03/17 06:53 05/03/17 06:53 05/03/17 06:53 05/03/17 06:53 05/03/17 06:53 <Joe Posada - Last Filed: 05/03/17 10:11> ED Treatment Course - LABORATORY CBC & Chemistry Diagram: 05/02/17 16:00 - ADDITIONAL ORDERS Additional order review: Laboratory Results 05/02/17 16:00 Uric Acid 8.6 H 05/02/17 16:00 RBC 4.43 MCV 96.0 D MCHC 33.4 RDW 12.7 D MPV 9.7 D - Medications Given in the ED: ED Medications Discontinued Medications Generic Name Dose Route Start Last Admin Trade Name Freq PRN Reason Stop Dose Admin Sodium Chloride 1,000 mls @ 1,000 mls/hr 05/02/17 21:38 05/02/17 22:05 Normal Saline - IV 05/02/17 22:37 1,000 mls/hr ASDIR STA Administration Sodium Chloride 1,000 mls @ 1,000 mls/hr 05/03/17 02:50 05/03/17 03:27 Normal Saline - IV 05/03/17 03:49 1,000 mls/hr ASDIR STA Administration Meclizine HCl 25 mg 05/02/17 21:38 05/02/17 22:04 Antivert - PO 05/02/17 21:39 25 mg ONCE STA Administration Ondansetron HCl 8 mg 05/02/17 17:01 05/02/17 17:25 Zofran Odt - SL 05/02/17 17:02 8 mg ONCE ONE Administration Ondansetron HCl 4 mg 05/02/17 21:38 05/02/17 22:04 Zofran Injection IVPUSH 05/02/17 21:39 4 mg ONCE STA Administration Oxycodone/Acetaminophen 2 combo 05/02/17 17:01 05/02/17 17:25 Percocet 5/325 - PO 05/02/17 17:02 2 combo ONCE ONE Administration <MicahFortino valle - Last Filed: 05/03/17 06:35> - LABORATORY CBC & Chemistry Diagram: 05/02/17 16:00 - ADDITIONAL ORDERS Additional order review: Laboratory Results 05/03/17 03:38 Urine Color Yellow Urine Appearance Clear Urine pH 6.0 Ur Specific [place] 1.015 Urine Protein Negative Urine Glucose (UA) Negative Urine Ketones Negative Urine Blood Negative Urine Nitrite Negative Urine Bilirubin Negative Urine Urobilinogen Negative 05/02/17 16:00 RBC 4.43 MCV 96.0 D MCHC 33.4 RDW 12.7 D MPV 9.7 D - Medications Given in the ED: ED Medications Discontinued Medications Generic Name Dose Route Start Last Admin Trade Name Jorgeq PRN Reason Stop Dose Admin Allopurinol 100 mg 05/03/17 06:34 05/03/17 06:45 Zyloprim - PO 05/03/17 06:35 100 mg ONCE ONE Administration Sodium Chloride 1,000 mls @ 1,000 mls/hr 05/02/17 21:38 05/02/17 22:05 Normal Saline - IV 05/02/17 22:37 1,000 mls/hr ASDIR STA Administration Sodium Chloride 1,000 mls @ 1,000 mls/hr 05/03/17 02:50 05/03/17 03:27 Normal Saline - IV 05/03/17 03:49 1,000 mls/hr ASDIR STA Administration Meclizine HCl 25 mg 05/02/17 21:38 05/02/17 22:04 Antivert - PO 05/02/17 21:39 25 mg ONCE STA Administration Ondansetron HCl 8 mg 05/02/17 17:01 05/02/17 17:25 Zofran Odt - SL 05/02/17 17:02 8 mg ONCE ONE Administration Ondansetron HCl 4 mg 05/02/17 21:38 05/02/17 22:04 Zofran Injection IVPUSH 05/02/17 21:39 4 mg ONCE STA Administration Oxycodone/Acetaminophen 2 combo 05/02/17 17:01 05/02/17 17:25 Percocet 5/325 - PO 05/02/17 17:02 2 combo ONCE ONE Administration <Joe Posada - Last Filed: 05/03/17 10:11> Medical Decision Making - Medical Decision Making 05/03/17 03:51 Pt now feels better. Finger stick is in the 140's. No longer dizzy. Will discharge. 05/03/17 06:35 Pt didn't want to be discharged when she again was going to be discharged. Pt states she won't be able to walk because her knee hurts and she is concerned because she lives alone. Will have social work evaluate pt to possible discharge or admission. <Fortino Hale - Last Filed: 05/03/17 06:35> - Medical Decision Making 05/03/17 10:11 Patient with moderate to severe right knee pain. In the emergency Department patient received Percocet. Secondary to this medication she began to feel nauseous dizzy and lightheaded. These symptoms have since resolved. Patient was unable to ambulate comfortably in the emergency department she states she lives by herself does not feel that she can safely return home Patient placed on ED short stay observation. We'll require physical therapy evaluation social organization professor evaluation may require overnight observation if unable to provide patient with safe discharge plan <Joe Posada - Last Filed: 05/03/17 10:11> *DC/Admit/Observation/Transfer - Discharge Dispostion Admit: No <Fortino Hale - Last Filed: 05/03/17 06:35> - Discharge Dispostion Admit: Yes <Joe Posada - Last Filed: 05/03/17 10:11> Diagnosis at time of Disposition: Right knee DJD Qualifiers: Osteoarthritis type: primary Qualified Code(s): M17.11 - Unilateral primary osteoarthritis, right knee - Discharge Dispostion Condition at time of disposition: Improved
[2017-05-03] MEDS ORDERED: ALLOPURINOL 100 MG TABLET (FP) PO ONE (06:34)
--- NOTE | 2017-05-03 08:50 | HP ---
CHIEF COMPLAINT: Right knee pain, discomfort, difficulty ambulation PCP: Dr. Morrissey, PCP Dr. Muñoz, insurance territory manager HISTORY OF PRESENT ILLNESS: Patient is a 60 year old female with a significant past medical history of hypertension, hyperlipidemia, afib (on Eliquis) and GERD. She presented to the ED on 05/02 with complaints of right knee pain x 1 month. She describes the right knee as very painful and she notes it to be more swollen. She reports that she was last seen at [facility] in January of 2017 and received bilateral knee injections. She also reports seeing her PCP last Saturday and was prescribed a muscle relaxer. She usually walks with a cane but ambulation is now more difficult with the right knee pain. ER course was notable for: (1) knee xray (2) allopurinol 100mg x 1, ESR and uric acid elevated (3) Recent Travel: denies PAST MEDICAL HISTORY: Patient is a 60 year old female with a significant past medical history of PAST SURGICAL HISTORY: s/p steriod injections on bilateral knees in January 2017 Social History: Smoking:none Alcohol: none Drugs: none Family History: Allergies aspirin Allergy (Verified 05/02/17 14:03) Rash shellfish derived Allergy (Verified 05/02/17 14:03) SEAFOOD Allergy (Uncoded 05/02/17 14:03) Itching HOME MEDICATIONS: Home Medications Medication Instructions Recorded Atorvastatin Ca [Lipitor] 10 mg PO DAILY #0 tablet 01/31/12 Furosemide [Lasix -] 20 mg PO DAILY 09/08/16 Losartan Potassium 50 mg PO DAILY 09/08/16 Albuterol Sulfate Inhaler - 1 - 2 inh PO Q4H PRN 03/20/17 [Ventolin Hfa Inhaler -] Apixaban [Eliquis -] 5 mg PO DAILY 03/20/17 Metoprolol Succinate [Toprol Xl -] 25 mg PO DAILY 03/20/17 Ondansetron [Zofran *Odt*] 8 mg SL TID #30 od.tablet 05/02/17 Allopurinol [Zyloprim -] 100 mg PO DAILY #30 tablet 05/03/17 REVIEW OF SYSTEMS CONSTITUTIONAL: Absent: fever, chills, diaphoresis, generalized weakness, malaise, loss of appetite, weight change HEENT: Absent: rhinorrhea, nasal congestion, throat pain, throat swelling, difficulty swallowing, mouth swelling, ear pain, eye pain, visual changes CARDIOVASCULAR: Absent: chest pain, syncope, palpitations, irregular heart rate, lightheadedness , peripheral edema RESPIRATORY: Absent: cough, shortness of breath, dyspnea with exertion, orthopnea, wheezing, stridor, hemoptysis GASTROINTESTINAL: Absent: abdominal pain, abdominal distension, nausea, vomiting, diarrhea, constipation, melena, hematochezia GENITOURINARY: Absent: dysuria, frequency, urgency, hesitancy, hematuria, flank pain, genital pain SKIN: Absent: rash, itching, pallor HEMATOLOGIC/IMMUNOLOGIC: Absent: easy bleeding, easy bruising, lymphadenopathy, frequent infections ENDOCRINE: Absent: unexplained weight gain, unexplained weight loss, heat intolerance, cold intolerance NEUROLOGIC: Absent: headache, focal weakness or paresthesias, dizziness, unsteady gait, seizure, mental status changes, bladder or bowel incontinence PSYCHIATRIC: Absent: anxiety, depression, suicidal or homicidal ideation, hallucinations. PHYSICAL EXAMINATION Vital Signs - 24 hr 05/02/17 05/02/17 05/03/17 14:00 21:32 03:40 Temperature 98 F 98.1 F 98.7 F Pulse Rate 59 L Pulse Rate [ 62 88 Right Radial] Respiratory 18 14 18 Rate Blood Pressure 140/80 Blood Pressure 126/68 126/70 [Right Arm] O2 Sat by Pulse 99 99 Oximetry (%) 05/03/17 06:53 Temperature 98.7 F Pulse Rate Pulse Rate [ 72 Right Radial] Respiratory 18 Rate Blood Pressure Blood Pressure 141/102 [Right Arm] O2 Sat by Pulse 100 Oximetry (%) GENERAL: Awake, alert, and fully oriented, in no acute distress. HEAD: Normal with no signs of trauma. EYES: Pupils equal, round and reactive to light, extraocular movements intact, sclera anicteric, conjunctiva clear. No lid lag. EARS, NOSE, THROAT: Ears normal, nares patent, oropharynx clear without exudates. Moist mucous membranes. NECK: Normal range of motion, supple without lymphadenopathy, JVD, or masses. LUNGS: Breath sounds equal, clear to auscultation bilaterally. No wheezes, and no crackles. No accessory muscle use. HEART: Irregular, hx of afib: on Eliquis ABDOMEN: Soft, nontender, not distended, normoactive bowel sounds, no guarding, no rebound, no masses. No hepatomegaly or splenomegaly. MUSCULOSKELETAL: tender, +pain of right knee, difficulty with ambulation, knee xray shows severe osteoarthitic changes UPPER EXTREMITIES: 2+ pulses, warm, well-perfused. No cyanosis. No clubbing. No peripheral edema. NEUROLOGICAL: Normal speech. Normal gait. PSYCHIATRIC: Cooperative. Good eye contact. Appropriate mood and affect. SKIN: Warm, dry, normal turgor, no rashes or lesions noted, normal capillary refill. Laboratory Results - last 24 hr 05/02/17 05/02/17 05/03/17 16:00 16:00 03:38 WBC 7.6 D RBC 4.43 Hgb 14.2 D Hct 42.6 MCV 96.0 D MCH 32.1 D MCHC 33.4 RDW 12.7 D Plt Count 192 D MPV 9.7 D ESR 33 H Uric Acid 8.6 H Urine Color Yellow Urine Appearance Clear Urine pH 6.0 Ur Specific [place] 1.015 Urine Protein Negative Urine Glucose (UA) Negative Urine Ketones Negative Urine Blood Negative Urine Nitrite Negative Urine Bilirubin Negative Urine Urobilinogen Negative ASSESSMENT/PLAN: Patient is a 60 year old female with a history of HTN, HLD, Afib on Eliquis, and GERD presents with one day history of worsening foot pain placed on observation. Imaging: Right knee xray 05/02/2017: Severe osteoarthritic changes in the patellofemoral and medial femorotibial compartments. Posterior intercondylar ossifications are suspicious for loose bodies. No evidence of acute fracture or dislocation of the right knee. Small suprapatellar effusion. Muscular/Skeletal: Right knee pain/discomfort making it difficult for her to ambulate Knee xray as above Uric acid and ESR elevated CMP ordered Allopurinol 100m BID and Tylenol 650mg scheduled for inflammation US of Lower ext. to r/o DVT. SW, PT and ortho consult Cardiology Hypertension, controlled On metoprolol daily Afib, on Eliquis 5mg BID F.E.N. Fluids: oral intake Electrolytes: cmp Nutrition: low sodium diet Prophy: DVT: on eliquis 5mg bid GI: deferred Disposition: full code. OBS.
[2017-05-03 09:20] VITALS: PULSE 80
[2017-05-03] MEDS ORDERED: ACETAMINOPHEN 325 MG TABLET (FP) ONE (09:23)
[2017-05-03] MEDS: ACETAMINOPHEN 325 MG TABLET (FP) PO SCH ×2 (09:25→16:20)
[2017-05-03] MEDS ORDERED: LOSARTAN POTASSIUM 50 MG TABLET (FP) PO SCH (10:00)
[2017-05-03] MEDS ORDERED: ALLOPURINOL 100 MG TABLET (FP) PO SCH (10:00)
[2017-05-03] MEDS ORDERED: METOPROLOL SUCCINATE 25 MG TAB.SR.24H (FP) PO SCH (10:00)
[2017-05-03] MEDS ORDERED: FUROSEMIDE 20 MG TABLET (FP) PO SCH (10:00)
[2017-05-03] MEDS ORDERED: APIXABAN 5 MG TABLET PO SCH (10:00)
[2017-05-03 11:15] LABS: ALBUMIN 3.1 g/dl (3.4-5.0); ANION GAP 4 (8-16); BILIRUBIN,TOTAL 0.6 mg/dL (0.2-1.0); CALCIUM 8.4 mg/dL (8.5-10.1); CO2 29 mmol/L (21-32); CREATININE 1.2 mg/dL (0.55-1.02); GLUCOSE,RANDOM 97 mg/dL (74-106); SGOT/AST 13 U/L (15-37); SGPT/ALT 22 U/L (12-78); TOT PROT 6.4 g/dl (6.4-8.2)
[2017-05-03 11:16] LABS: ALK PHOS 82 U/L (45-117)
--- NOTE | 2017-05-03 12:38 | CONSULT ---
Consult - text type - Consultation Consultation Note: FULL CONSULT DICTATED IMP: SEVERE DJD B KNEES UNRESPONSIVE TO CONSERVATIVE MEASURES PLAN: PATIENT OFFERED TKR WHICH SHE REFUSES. SHE WANTS TO TRY PT. TRANSFER TO SNF WHEN READY. NSAIDS FOR NOW
--- NOTE | 2017-05-03 13:07 | CONS ---
DATE OF CONSULTATION: 05/03/2017 HISTORY OF PRESENT ILLNESS: Patient is a 62-year-old female with a long history of bilateral knee DJD. She 1 month ago saw an orthopedist at [facility] diagnosing her with severe arthritis and gave her bilateral cortisone injections. On the left, it helped. On the right, it is still bothering here a great deal. She says she lives alone and cannot function and now presents to the emergency room with increased pain. Questionable history of gout. PHYSICAL EXAMINATION: Extremities: She has no erythema, swelling. She has diffuse tenderness throughout her right knee, especially medial joint line and medial patellar facet. Good stability. Range of motion is zero to about 50 degrees but in a great deal of pain. Calf is soft, nontender. Negative Gaitan sign. Negative Homans sign. Good motion, hip, ankle and toes. IMAGING: X-ray shows severe DJD, right knee. IMPRESSION: Severe degenerative joint disease, right knee. No evidence of gouty flare despite the fact that the patient's uric acid is 8.6. PLAN: Patient is adamant that she does not want to even consider a total knee replacement. She though has already failed injection therapy. I would therefore try antiinflammatories and physical therapy. We tried placing a knee immobilizer on her leg to get her to ambulate, but it was too painful for her. She did not want to go home. She wanted to be transferred to a short-term nursing facility. We will try to arrange for that to happen. XENIA NEVES M.D. [id number]
[2017-05-03] MEDS ORDERED: LOSARTAN POTASSIUM 25 MG TABLET ONE (13:34)
[2017-05-03] MEDS ORDERED: METOPROLOL SUCCINATE 50 MG TAB.SR.24H (FP) ONE (13:34)
[2017-05-03] MEDS ORDERED: ALLOPURINOL 100 MG TABLET (FP) ONE (13:40)
[2017-05-03 13:47] VITALS: TEMP 98.6
--- NOTE | 2017-05-03 14:39 | DS ---
Physical Exam: SUBJECTIVE: Patient seen and examined OBJECTIVE: Negative for DVT of right leg RW ordered for home use after seen by physical therapy Vital Signs Period Temp Pulse Resp BP Sys/Weiss Pulse Ox Last 24 Hr 98.0 F-98.7 F 62-88 14-20 117-141/68-102 98-100 PHYSICAL EXAM GENERAL: Awake, alert, and fully oriented, in no acute distress. HEAD: Normal with no signs of trauma. EYES: Pupils equal, round and reactive to light, extraocular movements intact, sclera anicteric, conjunctiva clear. No lid lag. EARS, NOSE, THROAT: Ears normal, nares patent, oropharynx clear without exudates. Moist mucous membranes. NECK: Normal range of motion, supple without lymphadenopathy, JVD, or masses. LUNGS: Breath sounds equal, clear to auscultation bilaterally. No wheezes, and no crackles. No accessory muscle use. HEART: Irregular, hx of afib: on Eliquis ABDOMEN: Soft, nontender, not distended, normoactive bowel sounds, no guarding, no rebound, no masses. No hepatomegaly or splenomegaly. MUSCULOSKELETAL: tender, +pain of right knee, difficulty with ambulation, knee xray shows severe osteoarthitic changes UPPER EXTREMITIES: 2+ pulses, warm, well-perfused. No cyanosis. No clubbing. No peripheral edema. NEUROLOGICAL: Normal speech. Normal gait. PSYCHIATRIC: Cooperative. Good eye contact. Appropriate mood and affect. SKIN: Warm, dry, normal turgor, no rashes or lesions noted, normal capillary refill. LABS Laboratory Results - last 24 hr 05/02/17 05/02/17 05/02/17 06:43 16:00 16:00 WBC 7.6 D RBC 4.43 Hgb 14.2 D Hct 42.6 MCV 96.0 D MCH 32.1 D MCHC 33.4 RDW 12.7 D Plt Count 192 D MPV 9.7 D ESR 33 H Sodium 144 Potassium 4.3 Chloride 111 H Carbon Dioxide 29 Anion Gap 4 L BUN 15 D Creatinine 1.2 H Creat Clearance w eGFR 45.23 Random Glucose 97 Uric Acid 8.6 H Calcium 8.4 L Total Bilirubin 0.6 D AST 13 L ALT 22 D Alkaline Phosphatase 82 Total Protein 6.4 Albumin 3.1 L Urine Color Urine Appearance Urine pH Ur Specific [place] Urine Protein Urine Glucose (UA) Urine Ketones Urine Blood Urine Nitrite Urine Bilirubin Urine Urobilinogen 05/03/17 03:38 WBC RBC Hgb Hct MCV MCH MCHC RDW Plt Count MPV ESR Sodium Potassium Chloride Carbon Dioxide Anion Gap BUN Creatinine Creat Clearance w eGFR Random Glucose Uric Acid Calcium Total Bilirubin AST ALT Alkaline Phosphatase Total Protein Albumin Urine Color Yellow Urine Appearance Clear Urine pH 6.0 Ur Specific [place] 1.015 Urine Protein Negative Urine Glucose (UA) Negative Urine Ketones Negative Urine Blood Negative Urine Nitrite Negative Urine Bilirubin Negative Urine Urobilinogen Negative HOSPITAL COURSE: Date of Admission:05/03/17 Date of Discharge: 05/03/17 Patient is a 60 year old female with a history of HTN, HLD, Afib on Eliquis, and GERD presents with one day history of worsening foot pain placed on observation. Imaging: Right knee xray 05/02/2017: Severe osteoarthritic changes in the patellofemoral and medial femorotibial compartments. Posterior intercondylar ossifications are suspicious for loose bodies. No evidence of acute fracture or dislocation of the right knee. Small suprapatellar effusion. Vascular study: negative for DVT Muscular/Skeletal: Right knee pain/discomfort making it difficult for her to ambulate Knee xray as above Uric acid and ESR elevated Allopurinol 100mg daily and Tylenol 650mg scheduled for inflammation Avoid NSAIDs as pt is on Eliquis US of Lower ext. negative for DVT PT ambulated with pt and recommended RW Patient seen by Ortho, Dr. Baker: followup outpatient for possible TKR Cardiology Hypertension, controlled On metoprolol daily Afib, on Eliquis 5mg BID Disposition: full code. OBS. Minutes to complete discharge: 60 Discharge Summary Reason For Visit: OSTEOARTHRITIS OF RT KNEE (SHORT STAY ED/OBS) Current Active Problems Right knee DJD (Acute) Condition: Improved - Instructions Diet, Activity, Other Instructions: Mrs. Flores: Please continue to take the home medications as prescribed. Continue Tylenol 650mg twice per day for right knee pain. A Rolling walker has been prescribed to you. Please follow up with the orthopedic surgeon at [facility] or with Dr. Baker within 1 week. Please call me with any questions that you may have. Tamie Verma NP [facility] [phone] Referrals: Rasta Baker MD [Staff Physician] - Argelia Morrissey [Primary Care Provider] - Junito Glez MD [Staff Physician] - Disposition: HOME - Home Medications Comprehensive Discharge Medication List: Ambulatory Orders Atorvastatin Ca [Lipitor] 10 mg PO DAILY #0 tablet 01/31/12 Furosemide [Lasix -] 20 mg PO DAILY 09/08/16 Losartan Potassium 50 mg PO DAILY 09/08/16 Albuterol Sulfate Inhaler - [Ventolin Hfa Inhaler -] 1 - 2 inh PO Q4H PRN Apixaban [Eliquis -] 5 mg PO DAILY 03/20/17 Metoprolol Succinate [Toprol Xl -] 25 mg PO DAILY 03/20/17 Ondansetron [Zofran *Odt*] 8 mg SL TID #30 od.tablet 05/02/17 Allopurinol [Zyloprim -] 100 mg PO DAILY #30 tablet 05/03/17 Miscellaneous Medical Supply [Outpatient Order] 1 each ASDIR #1 misc This patient is new to me today: Yes Date on this admission: 05/03/17 Emergency Visit: Yes ED Registration Date: 05/03/17 Care time: The patient presented to the Emergency Department on the above date and was hospitalized for further evaluation of their emergent condition. Critical Care patient: No - Discharge Referral Referred to [facility] Med P.C.: No
[2017-05-03] MEDS: APIXABAN 5 MG TABLET PO SCH ×2 (16:20→16:36)
[2017-05-03 16:40] VITALS: BP 121/77
[2017-05-03 20:10] LABS: URINE LEUK ESTERASE Negative (NEGATIVE)
[2017-05-03] MEDS ORDERED: ATORVASTATIN CA 10 MG TABLET (FP) PO SCH (22:00)
== END 2017-05-03 16:45 | disposition home or self-care (01) ==
LOC: JER 13:43 → JERBED 05-03 08:26
PROVIDERS: ADMIT Internal Medicine; ATTEND Nurse Practitioner Family
PROC: 3E033GC Introduction of Other Therapeutic Substance into Peripheral Vein, Percutaneous Approach (ICD-10-PCS; principal; 2017-05-03)
PROC: 3E0337Z Introduction of Electrolytic and Water Balance Substance into Peripheral Vein, Percutaneous Approach (ICD-10-PCS; 2017-05-03)
DX: M17.11 Unilateral primary osteoarthritis, right knee (principal); I10 Essential (primary) hypertension; I48.91 Unspecified atrial fibrillation; G47.33 Obstructive sleep apnea (adult) (pediatric); J45.909 Unspecified asthma, uncomplicated; K21.9 Gastro-esophageal reflux disease without esophagitis; M54.5 Low back pain; G89.29 Other chronic pain; E78.00 Pure hypercholesterolemia, unspecified; Z79.01 Long term (current) use of anticoagulants; Z88.6 Allergy status to analgesic agent; Z91.013 Allergy to seafood
CPT/HCPCS: 36415; 73562-TC-RT; 80053; 81003; 84550; 85027; 85651; 93971-TC; 97116-GP; 97161-GP; 99285-25; G0378

== ENCOUNTER 2020-07-08 15:45 | Inpatient (IN) | payer OTHER ==
[2020-07-08] MEDS ORDERED: DEXAMETHASONE SOD PHOSPHATE 10 MG/1 ML VIAL IVPUSH ONE (16:52)
[2020-07-08] MEDS ORDERED: DEXAMETHASONE SOD PHOSPHATE 10 MG/1 ML VIAL ONE (17:15)
[2020-07-08] MEDS ORDERED: CEFTRIAXONE 1,000 MG in DEXTROSE 5%-WATER - 50 ML IVPB ONE (17:40)
[2020-07-08] MEDS ORDERED: AZITHROMYCIN IVPB 500 MG in DEXTROSE 5%-WATER - 250 ML IVPB ONE (17:41)
[2020-07-08 18:00] LABS: EOS % 1.3 % (0-4.5); HEMATOCRIT 44.8 % (32.4-45.2); HEMOGLOBIN 15.1 GM/dL (10.7-15.3); LYMPH % 14.5 % (8-40); MCH 31.7 pg (25.7-33.7); MCHC 33.6 g/dl (32.0-36.0); MEAN CELL VOLUME 94.4 fl (80-96); MEAN PLT VOLUME 9.4 fl (7.5-11.1); MONO % 10.2 % (3.8-10.2); PLATELET COUNT 331 K/MM3 (134-434); RBC 4.74 M/mm3 (3.60-5.2); RDW 13.2 % (11.6-15.6); WHITE BLOOD COUNT 8.3 K/mm3 (4.0-10.0)
[2020-07-08 18:08] LABS: VENOUS BASE EXCESS 2.8 mmol/L (-2-2); VENOUS O2 SATURATION 88.4 % (70-80); VENOUS PH 7.44 (7.310-7.410)
[2020-07-08 18:22] LABS: INR 1.29 (0.83-1.09); PROTHROMBIN TIME (PATIENT) 15.7 SEC (9.7-13.0)
[2020-07-08 18:25] LABS: ACTIVATED PTT 33.1 SECONDS (25.2-36.5)
[2020-07-08] MEDS ORDERED: CEFTRIAXONE 1 GM/50 ML BAG ONE (18:31)
[2020-07-08] MEDS ORDERED: AZITHROMYCIN IVPB 500 MG/250 ML BAG IVPB ONE (18:31)
[2020-07-08 18:33] LABS: BLOOD UREA NITROGEN 27.2 mg/dL (7-18); CALCIUM 9.5 mg/dL (8.5-10.1)
[2020-07-08 18:34] LABS: ALBUMIN 2.9 g/dl (3.4-5.0)
[2020-07-08 18:37] LABS: CREATININE 1.3 mg/dL (0.55-1.3)
[2020-07-08 18:38] LABS: BILIRUBIN,TOTAL 1.4 mg/dL (0.2-1); TOT PROT 7.8 g/dl (6.4-8.2)
[2020-07-09 07:39] LABS: BASO % 0.2 % (0-2.0); HEMATOCRIT 41.7 % (32.4-45.2); HEMOGLOBIN 13.9 GM/dL (10.7-15.3); MCH 31.9 pg (25.7-33.7); MCHC 33.5 g/dl (32.0-36.0); MEAN CELL VOLUME 95.4 fl (80-96); MONO % 3.4 % (3.8-10.2); NEUT % 87.4 % (42.8-82.8); PLATELET COUNT 325 K/MM3 (134-434); RBC 4.37 M/mm3 (3.60-5.2); WHITE BLOOD COUNT 7.5 K/mm3 (4.0-10.0)
[2020-07-09 07:57] LABS: POTASSIUM 3.8 mmol/L (3.5-5.1)
[2020-07-09 07:59] LABS: ALBUMIN 2.8 g/dl (3.4-5.0); CALCIUM 9.8 mg/dL (8.5-10.1); MAGNESIUM 2.5 mg/dL (1.8-2.4)
[2020-07-09 08:00] LABS: BLOOD UREA NITROGEN 28.5 mg/dL (7-18)
[2020-07-09 08:02] LABS: CREATININE 1.2 mg/dL (0.55-1.3)
[2020-07-09 08:03] LABS: PHOSPHOROUS 4.5 mg/dL (2.5-4.9)
[2020-07-09 08:04] LABS: BILIRUBIN,TOTAL 0.7 mg/dL (0.2-1); TOT PROT 7.4 g/dl (6.4-8.2)
[2020-07-09] MEDS ORDERED: PT OWN MED DRAWER 7, Y5N ONE (08:41)
[2020-07-09] MEDS: DEXAMETHASONE SOD PHOSPHATE 4 MG/1 ML VIAL IVPUSH SCH (10:28)
[2020-07-09] MEDS: FAMOTIDINE 20 MG/50 ML IVPB 20 MG/50 ML MG IVPB SCH ×2 (10:28→21:11)
[2020-07-09] MEDS: ASCORBIC ACID 500 MG TABLET (FP) PO SCH ×2 (10:28→21:11)
[2020-07-09] MEDS: ZINC SULFATE 220 MG CAPSULE (FP) PO SCH (10:28)
[2020-07-09] MEDS: CHOLECALCIFEROL (VIT D3) 1,000 UNIT (25 MCG) TABLET PO SCH (10:28)
[2020-07-09] MEDS ORDERED: REMDESIVIR 100 MG in SODIUM CHLORIDE 230 ML IVPB SCH (14:30)
[2020-07-09] MEDS ORDERED: REMDESIVIR 200 MG in SODIUM CHLORIDE 210 ML IVPB ONE (14:30)
[2020-07-09] MEDS: APIXABAN 5 MG TABLET PO SCH (21:11)
[2020-07-10 08:13] LABS: BASO % 0.1 % (0-2.0); HEMATOCRIT 39.7 % (32.4-45.2); HEMOGLOBIN 13.3 GM/dL (10.7-15.3); LYMPH % 6.2 % (8-40); MCH 31.8 pg (25.7-33.7); MCHC 33.5 g/dl (32.0-36.0); MEAN CELL VOLUME 94.9 fl (80-96); MONO % 4.8 % (3.8-10.2); NEUT % 88.9 % (42.8-82.8); PLATELET COUNT 330 K/MM3 (134-434); RBC 4.18 M/mm3 (3.60-5.2); RDW 13.2 % (11.6-15.6); WHITE BLOOD COUNT 13.4 K/mm3 (4.0-10.0)
[2020-07-10 08:29] LABS: POTASSIUM 3.6 mmol/L (3.5-5.1)
[2020-07-10 08:39] LABS: ALBUMIN 2.8 g/dl (3.4-5.0); BLOOD UREA NITROGEN 38.8 mg/dL (7-18); CALCIUM 9.7 mg/dL (8.5-10.1)
[2020-07-10 08:40] LABS: MAGNESIUM 2.2 mg/dL (1.8-2.4)
[2020-07-10 08:43] LABS: CREATININE 1.5 mg/dL (0.55-1.3); TOT PROT 7.2 g/dl (6.4-8.2)
[2020-07-10 08:44] LABS: BILIRUBIN,TOTAL 1.7 mg/dL (0.2-1)
[2020-07-10] MEDS: ZINC SULFATE 220 MG CAPSULE (FP) PO SCH (10:49)
[2020-07-10] MEDS: metoPROLOL SUCCINATE 25 MG TAB.SR.24H (FP) PO SCH (10:49)
[2020-07-10] MEDS: DEXAMETHASONE SOD PHOSPHATE 4 MG/1 ML VIAL IVPUSH SCH (10:49)
[2020-07-10] MEDS: APIXABAN 5 MG TABLET PO SCH ×2 (10:49→21:23)
[2020-07-10] MEDS: CHOLECALCIFEROL (VIT D3) 1,000 UNIT (25 MCG) TABLET PO SCH (10:49)
[2020-07-10] MEDS: ASCORBIC ACID 500 MG TABLET (FP) PO SCH ×2 (10:49→21:23)
[2020-07-10] MEDS: FAMOTIDINE 20 MG/50 ML IVPB 20 MG/50 ML MG IVPB SCH ×2 (10:50→21:23)
[2020-07-10] MEDS ORDERED: REMDESIVIR 100 MG in SODIUM CHLORIDE 230 ML IVPB SCH (15:00)
[2020-07-11 08:13] LABS: BASO % 0.2 % (0-2.0); EOS % 0.1 % (0-4.5); HEMATOCRIT 40.9 % (32.4-45.2); HEMOGLOBIN 13.4 GM/dL (10.7-15.3); LYMPH % 7.4 % (8-40); MCH 31.5 pg (25.7-33.7); MCHC 32.7 g/dl (32.0-36.0); MEAN CELL VOLUME 96.3 fl (80-96); MONO % 4.7 % (3.8-10.2); NEUT % 87.6 % (42.8-82.8); PLATELET COUNT 320 K/MM3 (134-434); RBC 4.25 M/mm3 (3.60-5.2); RDW 13.2 % (11.6-15.6); WHITE BLOOD COUNT 12.2 K/mm3 (4.0-10.0)
[2020-07-11 08:40] LABS: ALBUMIN 2.7 g/dl (3.4-5.0); BLOOD UREA NITROGEN 36.6 mg/dL (7-18); CALCIUM 9.6 mg/dL (8.5-10.1); MAGNESIUM 2.1 mg/dL (1.8-2.4); POTASSIUM 4.3 mmol/L (3.5-5.1)
[2020-07-11 08:41] LABS: CREATININE 1.3 mg/dL (0.55-1.3)
[2020-07-11 08:42] LABS: BILIRUBIN,TOTAL 0.5 mg/dL (0.2-1)
[2020-07-11 08:43] LABS: TOT PROT 6.9 g/dl (6.4-8.2)
[2020-07-11] MEDS: FAMOTIDINE 20 MG/50 ML IVPB 20 MG/50 ML MG IVPB SCH ×2 (10:52→21:07)
[2020-07-11] MEDS: APIXABAN 5 MG TABLET PO SCH ×2 (10:53→21:07)
[2020-07-11] MEDS: DEXAMETHASONE SOD PHOSPHATE 4 MG/1 ML VIAL IVPUSH SCH (10:53)
[2020-07-11] MEDS: metoPROLOL SUCCINATE 25 MG TAB.SR.24H (FP) PO SCH (10:55)
[2020-07-11] MEDS: CHOLECALCIFEROL (VIT D3) 1,000 UNIT (25 MCG) TABLET PO SCH (10:55)
[2020-07-11] MEDS: ASCORBIC ACID 500 MG TABLET (FP) PO SCH ×2 (10:55→21:07)
[2020-07-11] MEDS: ZINC SULFATE 220 MG CAPSULE (FP) PO SCH (10:55)
[2020-07-11] MEDS ORDERED: REMDESIVIR 100 MG in SODIUM CHLORIDE 230 ML IVPB SCH (11:00)
[2020-07-11 11:01] LABS: ANISOCYTOSIS 1+; MACROCYTOSIS 0; PLATELET ESTIMATE NORMAL
[2020-07-11] MEDS: REMDESIVIR 100 MG in SODIUM CHLORIDE 230 ML IVPB SCH (14:16)
[2020-07-11 16:17] VITALS: BMI 46.0
[2020-07-12 08:56] LABS: BASO % 1.3 % (0-2.0); HEMATOCRIT 41.5 % (32.4-45.2); HEMOGLOBIN 13.7 GM/dL (10.7-15.3); LYMPH % 10.9 % (8-40); MCH 31.7 pg (25.7-33.7); MCHC 33.1 g/dl (32.0-36.0); MEAN CELL VOLUME 95.8 fl (80-96); MONO % 2.4 % (3.8-10.2); NEUT % 85.4 % (42.8-82.8); PLATELET COUNT 318 K/MM3 (134-434); RBC 4.33 M/mm3 (3.60-5.2); RDW 12.9 % (11.6-15.6)
[2020-07-12 09:28] LABS: POTASSIUM 5.1 mmol/L (3.5-5.1)
[2020-07-12 09:40] LABS: ALBUMIN 2.8 g/dl (3.4-5.0)
[2020-07-12 09:43] LABS: BILIRUBIN,TOTAL 0.5 mg/dL (0.2-1); CREATININE 1.1 mg/dL (0.55-1.3)
[2020-07-12 09:47] LABS: CALCIUM 9.7 mg/dL (8.5-10.1)
[2020-07-12 09:48] LABS: MAGNESIUM 2.2 mg/dL (1.8-2.4)
[2020-07-12 10:50] LABS: ANISOCYTOSIS 1+; MACROCYTOSIS 0; PLATELET ESTIMATE NORMAL
[2020-07-12] MEDS: CHOLECALCIFEROL (VIT D3) 1,000 UNIT (25 MCG) TABLET PO SCH (10:53)
[2020-07-12] MEDS: ASCORBIC ACID 500 MG TABLET (FP) PO SCH ×2 (10:53→22:41)
[2020-07-12] MEDS: DEXAMETHASONE SOD PHOSPHATE 4 MG/1 ML VIAL IVPUSH SCH (10:53)
[2020-07-12] MEDS: APIXABAN 5 MG TABLET PO SCH ×2 (10:53→22:41)
[2020-07-12] MEDS: ZINC SULFATE 220 MG CAPSULE (FP) PO SCH (10:54)
[2020-07-12] MEDS: FAMOTIDINE 20 MG/50 ML IVPB 20 MG/50 ML MG IVPB SCH ×2 (10:54→22:41)
[2020-07-12] MEDS: metoPROLOL SUCCINATE 25 MG TAB.SR.24H (FP) PO SCH (10:55)
[2020-07-12] MEDS: REMDESIVIR 100 MG in SODIUM CHLORIDE 230 ML IVPB SCH (12:03)
[2020-07-13 07:26] LABS: BASO % 0.1 % (0-2.0); HEMATOCRIT 40.8 % (32.4-45.2); HEMOGLOBIN 13.6 GM/dL (10.7-15.3); LYMPH % 11.9 % (8-40); MCH 32.1 pg (25.7-33.7); MCHC 33.4 g/dl (32.0-36.0); MEAN CELL VOLUME 95.9 fl (80-96); MEAN PLT VOLUME 8.8 fl (7.5-11.1); MONO % 5.2 % (3.8-10.2); NEUT % 82.8 % (42.8-82.8); PLATELET COUNT 304 K/MM3 (134-434); RBC 4.26 M/mm3 (3.60-5.2); RDW 13.2 % (11.6-15.6); WHITE BLOOD COUNT 10.5 K/mm3 (4.0-10.0)
[2020-07-13 07:44] LABS: CHLORIDE 111 mmol/L (98-107); POTASSIUM 5.1 mmol/L (3.5-5.1); SODIUM 142 mmol/L (136-145)
[2020-07-13 07:46] LABS: ALBUMIN 2.6 g/dl (3.4-5.0); BLOOD UREA NITROGEN 32.6 mg/dL (7-18); CALCIUM 9.5 mg/dL (8.5-10.1)
[2020-07-13 07:47] LABS: ANION GAP 3 MMOL/L (8-16); CO2 28 mmol/L (21-32); GLUCOSE,RANDOM 131 mg/dL (74-106); MAGNESIUM 2.1 mg/dL (1.8-2.4)
[2020-07-13 07:50] LABS: CREATININE 1.2 mg/dL (0.55-1.3); SGOT/AST 26 U/L (15-37); SGPT/ALT 88 U/L (13-61)
[2020-07-13 07:51] LABS: BILIRUBIN,TOTAL 0.5 mg/dL (0.2-1); LDH 267 U/L (84-246); TOT PROT 6.5 g/dl (6.4-8.2)
[2020-07-13 07:53] LABS: ALK PHOS 65 U/L (45-117)
[2020-07-13 08:37] LABS: ANISOCYTOSIS 0; MACROCYTOSIS 0; PLATELET ESTIMATE NORMAL
[2020-07-13] MEDS: DEXAMETHASONE SOD PHOSPHATE 4 MG/1 ML VIAL IVPUSH SCH (10:25)
[2020-07-13] MEDS: APIXABAN 5 MG TABLET PO SCH ×2 (10:26→22:02)
[2020-07-13] MEDS: metoPROLOL SUCCINATE 25 MG TAB.SR.24H (FP) PO SCH (10:26)
[2020-07-13] MEDS: ASCORBIC ACID 500 MG TABLET (FP) PO SCH ×2 (10:26→22:02)
[2020-07-13] MEDS: ZINC SULFATE 220 MG CAPSULE (FP) PO SCH (10:26)
[2020-07-13] MEDS: CHOLECALCIFEROL (VIT D3) 1,000 UNIT (25 MCG) TABLET PO SCH (10:26)
[2020-07-13] MEDS: FAMOTIDINE 20 MG TABLET PO SCH (10:45)
[2020-07-13] MEDS: REMDESIVIR 100 MG in SODIUM CHLORIDE 230 ML IVPB SCH (12:30)
[2020-07-13] MEDS: FAMOTIDINE 20 MG/50 ML IVPB 20 MG/50 ML MG IVPB SCH (15:04)
[2020-07-14 07:14] LABS: HEMATOCRIT 38.7 % (32.4-45.2); HEMOGLOBIN 12.8 GM/dL (10.7-15.3); LYMPH % 9.6 % (8-40); MCH 31.9 pg (25.7-33.7); MCHC 33.1 g/dl (32.0-36.0); MEAN CELL VOLUME 96.4 fl (80-96); MEAN PLT VOLUME 8.7 fl (7.5-11.1); MONO % 5.3 % (3.8-10.2); NEUT % 85.1 % (42.8-82.8); PLATELET COUNT 282 K/MM3 (134-434); RBC 4.02 M/mm3 (3.60-5.2); RDW 13.2 % (11.6-15.6); WHITE BLOOD COUNT 11.9 K/mm3 (4.0-10.0)
[2020-07-14 07:32] LABS: CHLORIDE 110 mmol/L (98-107); SODIUM 142 mmol/L (136-145)
[2020-07-14 07:46] LABS: ANION GAP 3 MMOL/L (8-16); BLOOD UREA NITROGEN 36.6 mg/dL (7-18); CALCIUM 9.4 mg/dL (8.5-10.1); CO2 28 mmol/L (21-32); GLUCOSE,RANDOM 135 mg/dL (74-106)
[2020-07-14 07:48] LABS: ALBUMIN 2.5 g/dl (3.4-5.0); MAGNESIUM 2.1 mg/dL (1.8-2.4)
[2020-07-14 07:49] LABS: SGOT/AST 21 U/L (15-37); SGPT/ALT 82 U/L (13-61)
[2020-07-14 07:51] LABS: BILIRUBIN,TOTAL 0.4 mg/dL (0.2-1); CREATININE 1.1 mg/dL (0.55-1.3); LDH 226 U/L (84-246)
[2020-07-14 07:52] LABS: ALK PHOS 61 U/L (45-117)
[2020-07-14] MEDS: ASCORBIC ACID 500 MG TABLET (FP) PO SCH ×2 (10:06→21:06)
[2020-07-14] MEDS: CHOLECALCIFEROL (VIT D3) 1,000 UNIT (25 MCG) TABLET PO SCH (10:06)
[2020-07-14] MEDS: metoPROLOL SUCCINATE 25 MG TAB.SR.24H (FP) PO SCH (10:06)
[2020-07-14] MEDS: APIXABAN 5 MG TABLET PO SCH ×2 (10:07→21:06)
[2020-07-14] MEDS: ZINC SULFATE 220 MG CAPSULE (FP) PO SCH (10:07)
[2020-07-14] MEDS: DEXAMETHASONE SOD PHOSPHATE 4 MG/1 ML VIAL IVPUSH SCH (10:07)
[2020-07-14] MEDS: FAMOTIDINE 20 MG TABLET PO SCH (10:07)
[2020-07-14] MEDS ORDERED: REMDESIVIR 100 MG in SODIUM CHLORIDE 230 ML IVPB SCH (13:00)
[2020-07-14] MEDS: FUROSEMIDE 20 MG TABLET (FP) PO SCH (15:22)
[2020-07-15 07:55] LABS: BASO % 0.4 % (0-2.0); HEMATOCRIT 44.4 % (32.4-45.2); HEMOGLOBIN 14.8 GM/dL (10.7-15.3); LYMPH % 11.8 % (8-40); MCHC 33.4 g/dl (32.0-36.0); MEAN CELL VOLUME 95.7 fl (80-96); MEAN PLT VOLUME 8.6 fl (7.5-11.1); MONO % 4.5 % (3.8-10.2); NEUT % 83.3 % (42.8-82.8); PLATELET COUNT 297 K/MM3 (134-434); RBC 4.64 M/mm3 (3.60-5.2); WHITE BLOOD COUNT 11.9 K/mm3 (4.0-10.0)
[2020-07-15 08:11] LABS: CHLORIDE 106 mmol/L (98-107); SODIUM 140 mmol/L (136-145)
[2020-07-15 08:17] LABS: CALCIUM 9.7 mg/dL (8.5-10.1)
[2020-07-15 08:18] LABS: ANION GAP 3 MMOL/L (8-16); BLOOD UREA NITROGEN 30.2 mg/dL (7-18); CO2 30 mmol/L (21-32); GLUCOSE,RANDOM 118 mg/dL (74-106); MAGNESIUM 2.2 mg/dL (1.8-2.4)
[2020-07-15 08:19] LABS: ALBUMIN 2.9 g/dl (3.4-5.0); SGPT/ALT 81 U/L (13-61)
[2020-07-15 08:20] LABS: SGOT/AST 18 U/L (15-37)
[2020-07-15 08:21] LABS: BILIRUBIN,TOTAL 0.7 mg/dL (0.2-1); CREATININE 1.2 mg/dL (0.55-1.3); TOT PROT 7.3 g/dl (6.4-8.2)
[2020-07-15 08:22] LABS: ALK PHOS 70 U/L (45-117)
[2020-07-15 08:24] LABS: LDH 286 U/L (84-246)
[2020-07-15] MEDS ORDERED: DEXAMETHASONE 4 MG TABLET (FP) PO SCH (10:00)
[2020-07-15] MEDS ORDERED: ALLOPURINOL 100 MG TABLET (FP) PO SCH (10:00)
[2020-07-15] MEDS: APIXABAN 5 MG TABLET PO SCH ×2 (11:00→21:03)
[2020-07-15] MEDS: FUROSEMIDE 20 MG TABLET (FP) PO SCH (11:00)
[2020-07-15] MEDS: ZINC SULFATE 220 MG CAPSULE (FP) PO SCH (11:00)
[2020-07-15] MEDS: metoPROLOL SUCCINATE 25 MG TAB.SR.24H (FP) PO SCH (11:00)
[2020-07-15] MEDS: FAMOTIDINE 20 MG TABLET PO SCH (11:01)
[2020-07-15] MEDS: ASCORBIC ACID 500 MG TABLET (FP) PO SCH ×2 (11:02→21:03)
[2020-07-15] MEDS: CHOLECALCIFEROL (VIT D3) 1,000 UNIT (25 MCG) TABLET PO SCH (11:02)
[2020-07-15 14:17] VITALS: TEMP 97.7
[2020-07-15 20:34] VITALS: BP 133/81; PULSE 105
== END 2020-07-15 22:48 | DRG 177 ==
LOC: JER 15:45 → JERBED 19:37 → J7W 07-09 02:48
PROVIDERS: ADMIT Hospitalist; ATTEND Nurse Practitioner Acute Care
PROC: XW033E5 Introduction of Remdesivir Anti-infective into Peripheral Vein, Percutaneous Approach, New Technology Group 5 (ICD-10-PCS; principal; 2020-07-09)
DX: U07.1 COVID-19 (principal); J12.82 Pneumonia due to coronavirus disease 2019; J96.01 Acute respiratory failure with hypoxia; Z68.42 Body mass index [BMI] 45.0-49.9, adult; N17.9 Acute kidney failure, unspecified; I10 Essential (primary) hypertension; M10.9 Gout, unspecified; K21.9 Gastro-esophageal reflux disease without esophagitis; J45.909 Unspecified asthma, uncomplicated; E78.00 Pure hypercholesterolemia, unspecified; I48.91 Unspecified atrial fibrillation; R50.9 Fever, unspecified; R45.89 Other symptoms and signs involving emotional state; E66.01 Morbid (severe) obesity due to excess calories; G47.33 Obstructive sleep apnea (adult) (pediatric)
CPT/HCPCS: 36415; 71045-TC-FY; 80053; 82550; 82553; 82728; 82803; 83036; 83615; 83735; 84100; 84484; 85025; 85379; 85610; 85730; 86140; 86769; 87040; 87804; 93005; 93010; 94761; 97116-GP; 97161-GP; 99285-25; C9399; C9803; J1100; U0003

== ENCOUNTER 2021-08-23 04:57 | Day surgery (SDC) | payer OTHER ==
[2021-08-22 10:13] VITALS: BMI 43.9
[~2021-08-23 04:57] MED LIST: ACETAMINOPHEN 325 MG TABLET (FP) PO PRN; CYCLOPENTOLATE HCL 1% OPHTH SOLN 2 ML BOTTLE OP SCH; KETOROLAC TROMETHAMINE 0.5% EYE DROP 1 DROP DROPS OP SCH; OFLOXACIN 0.3% OPHTHALMIC SOLUTION 5 ML BOTTLE OP SCH; PHENYLEPHRINE 2.5% OPHTH SOLN 15 ML BOTTLE OP SCH; TROPICAMIDE 1% OPHTH SOLN 15 ML BOTTLE OP SCH
[2021-08-23] MEDS ORDERED: CHONDROITIN SU A/HYALUR SOD 1 KIT ONE (07:07)
[2021-08-23] MEDS ORDERED: POVIDONE-IODINE 5% OPHTHALMIC PREP 30 ML SOLUTION ONE (07:26)
[2021-08-23] MEDS ORDERED: TETRACAINE 0.5% OPHTH SOLN 2 ML BOTTLE ONE (07:26)
[2021-08-23] MEDS ORDERED: LIDOCAINE HCL/PF 1% SDV 5ML VIAL ONE (07:33)
[2021-08-23] MEDS ORDERED: CYCLOPENTOLATE HCL 1% OPHTH SOLN 2 ML BOTTLE ONE (08:49)
[2021-08-23] MEDS ORDERED: KETOROLAC TROMETHAMINE 0.5% EYE DROP 1 DROP DROPS ONE (08:49)
[2021-08-23] MEDS ORDERED: PHENYLEPHRINE 2.5% OPHTH SOLN 15 ML BOTTLE ONE (08:49)
[2021-08-23] MEDS ORDERED: OFLOXACIN 0.3% OPHTHALMIC SOLUTION 5 ML BOTTLE ONE (08:49)
[2021-08-23] MEDS ORDERED: TROPICAMIDE 1% OPHTH SOLN 15 ML BOTTLE ONE (08:49)
[2021-08-23] MEDS ORDERED: TROPICAMIDE 1% OPHTH SOLN 15 ML BOTTLE OS ONE ×3 (10:00→10:10)
[2021-08-23] MEDS ORDERED: KETOROLAC TROMETHAMINE 0.5% EYE DROP 1 DROP DROPS OS ONE ×3 (10:00→10:10)
[2021-08-23] MEDS ORDERED: CYCLOPENTOLATE HCL 1% OPHTH SOLN 2 ML BOTTLE OS ONE ×3 (10:00→10:10)
[2021-08-23] MEDS ORDERED: PHENYLEPHRINE 2.5% OPHTH SOLN 15 ML BOTTLE OS ONE ×3 (10:00→10:10)
[2021-08-23] MEDS ORDERED: OFLOXACIN 0.3% OPHTHALMIC SOLUTION 5 ML BOTTLE OS ONE ×3 (10:00→10:10)
[2021-08-23] MEDS ORDERED: MIDAZOLAM HCL 2 MG/2 ML SINGLE DOSE VIAL ONE (11:02)
[2021-08-23] MEDS ORDERED: TETRACAINE 0.5% OPHTH SOLN 2 ML BOTTLE OS ONE (11:04)
[2021-08-23] MEDS ORDERED: POVIDONE-IODINE 5% OPHTHALMIC PREP 30 ML SOLUTION OS ONE (11:05)
[2021-08-23] MEDS ORDERED: BSS (NA/CA/MG/K) BALANCED SALT SOLUTION OPHTH SOLN 15 ML BOTTLE OS ONE ×2 (11:11→11:12)
[2021-08-23] MEDS ORDERED: CHONDROITIN SU A/HYALUR SOD 1 KIT IO ONE (11:12)
[2021-08-23] MEDS ORDERED: LIDOCAINE HCL 1% PRESERVATIVE FREE - 30ML VIAL IO ONE (11:12)
[2021-08-23] MEDS ORDERED: EPINEPHrine/PF 1 MG/1 ML (1:1,000) AMPULE SQ ONE (11:17)
[2021-08-23 13:27] VITALS: BP 122/59; PULSE 58; TEMP 98.3
== END 2021-08-23 12:35 | disposition home or self-care (01) ==
LOC: JASU-SURG 04:57
PROVIDERS: ATTEND Ophthalmology
PROC: 08RK3JZ Replacement of Left Lens with Synthetic Substitute, Percutaneous Approach (ICD-10-PCS; principal; 2021-08-23 11:00)
DX: H26.9 Unspecified cataract (principal)

== ENCOUNTER 2021-09-06 04:29 | Day surgery (SDC) | payer OTHER ==
[2021-09-05 12:27] VITALS: BMI 45.3
[~2021-09-06 04:29] MED LIST changes: -CYCLOPENTOLATE HCL 1% OPHTH SOLN 2 ML BOTTLE OP SCH; -KETOROLAC TROMETHAMINE 0.5% EYE DROP 1 DROP DROPS OP SCH; -OFLOXACIN 0.3% OPHTHALMIC SOLUTION 5 ML BOTTLE OP SCH; -PHENYLEPHRINE 2.5% OPHTH SOLN 15 ML BOTTLE OP SCH; -TROPICAMIDE 1% OPHTH SOLN 15 ML BOTTLE OP SCH
[2021-09-06] MEDS ORDERED: CHONDROITIN SU A/HYALUR SOD 1 KIT ONE (07:09)
[2021-09-06] MEDS ORDERED: LIDOCAINE HCL/PF 1% SDV 5ML VIAL ONE (07:09)
[2021-09-06] MEDS ORDERED: POVIDONE-IODINE 5% OPHTHALMIC PREP 30 ML SOLUTION ONE (07:23)
[2021-09-06] MEDS ORDERED: TETRACAINE 0.5% OPHTH SOLN 2 ML BOTTLE ONE (07:23)
[2021-09-06] MEDS ORDERED: PHENYLEPHRINE 2.5% OPHTH SOLN 15 ML BOTTLE ONE (07:43)
[2021-09-06] MEDS ORDERED: TROPICAMIDE 1% OPHTH SOLN 15 ML BOTTLE ONE (07:43)
[2021-09-06] MEDS ORDERED: CYCLOPENTOLATE HCL 1% OPHTH SOLN 2 ML BOTTLE ONE (07:43)
[2021-09-06] MEDS ORDERED: KETOROLAC TROMETHAMINE 0.5% EYE DROP 1 DROP DROPS ONE (07:43)
[2021-09-06] MEDS ORDERED: OFLOXACIN 0.3% OPHTHALMIC SOLUTION 5 ML BOTTLE ONE (07:44)
[2021-09-06] MEDS: PHENYLEPHRINE 2.5% OPHTH SOLN 15 ML BOTTLE OP SCH ×3 (08:15→08:45)
[2021-09-06] MEDS: OFLOXACIN 0.3% OPHTHALMIC SOLUTION 5 ML BOTTLE OP SCH ×3 (08:15→08:45)
[2021-09-06] MEDS: KETOROLAC TROMETHAMINE 0.5% EYE DROP 1 DROP DROPS OP SCH ×3 (08:15→08:44)
[2021-09-06] MEDS: CYCLOPENTOLATE HCL 1% OPHTH SOLN 2 ML BOTTLE OP SCH ×3 (08:15→08:43)
[2021-09-06] MEDS: TROPICAMIDE 1% OPHTH SOLN 15 ML BOTTLE OP SCH ×3 (08:15→08:48)
[2021-09-06] MEDS ORDERED: MIDAZOLAM HCL 2 MG/2 ML SINGLE DOSE VIAL ONE (09:58)
[2021-09-06] MEDS ORDERED: POVIDONE-IODINE 5% OPHTHALMIC PREP 30 ML SOLUTION OD ONE (10:14)
[2021-09-06] MEDS ORDERED: TETRACAINE 0.5% OPHTH SOLN 2 ML BOTTLE OD ONE (10:14)
[2021-09-06] MEDS ORDERED: LIDOCAINE 1% P/F 10 MG/ML VIAL INF ONE (10:14)
[2021-09-06] MEDS ORDERED: CHONDROITIN SU A/HYALUR SOD 1 KIT IO ONE (10:14)
[2021-09-06] MEDS ORDERED: BSS (NA/CA/MG/K) BALANCED SALT SOLUTION OPHTH SOLN 15 ML BOTTLE OD ONE (10:14)
[2021-09-06] MEDS ORDERED: TETRAHYDROZOLINE HCL EYE DROPS OD ONE (10:14)
[2021-09-06] MEDS ORDERED: EPINEPHrine/PF 1 MG/1 ML (1:1,000) AMPULE SQ ONE (10:14)
[2021-09-06 13:08] VITALS: BP 126/62; PULSE 58; TEMP 98.8
== END 2021-09-06 11:50 | disposition home or self-care (01) ==
LOC: JASU-SURG 04:29
PROVIDERS: ATTEND Ophthalmology
PROC: 08RJ3JZ Replacement of Right Lens with Synthetic Substitute, Percutaneous Approach (ICD-10-PCS; principal; 2021-09-06 10:00)
DX: H26.9 Unspecified cataract (principal)